=== PATIENT | female | born 1960 | race Caucasian/White ===

== ENCOUNTER 2024-09-05 16:02 | Observation (INO) ==
--- NOTE | 2024-09-05 16:34 | Emergency Department Note ---
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 Patient is accompanied by her who provide additional history. patient states that she suffered a fall on . Patient states that she slipped in the grass and fell and hit her head. Patient reports that she landed on her left side. On Thursday she developed right lower quadrant abdominal pain. She reports this is sharp and stabbing. Intermittently radiates to her right flank. Patient states that she has been taking Tylenol for improvement. She does report anticoagulation. Patient denies any abdominal surgical history. Patient states that nothing has seemed to improve her pain. She reports mild constipation. Patient denies any urinary complaints. No vaginal bleeding. Patient states she has had poor p.o. intake. She was seen at an urgent care prior to arrival but they did not order labs or imaging. Patient states that she continues to have a posterior headache. She denies any other trauma. They deny fever or chills. No cough or congestion. Denies chest pain or palpitations. No shortness of breath. They deny abdominal pain, nausea and vomiting. No urinary complaints. No recent changes in bowel movements. Patient denies recent changes in medications or OTC supplements. Patient offers no other complaints, today. ADDITIONAL HISTORY OBTAINED: Per HPI Chronic Medical/Social Conditions Affecting Care: Per HPI PAST MEDICAL HISTORY: See Below PAST SURGICAL HISTORY: See Below FAMILY HISTORY: See Below SOCIAL HISTORY: See Below HOME MEDICATIONS: See Below ALLERGIES: See Below VITALS: See Below PHYSICAL EXAMINATION: GENERAL: Sitting up in bed, alert, well appearing, well nourished, no distress, non-toxic EYE EXAM: normal conjunctiva. PERRL and EOM's grossly intact. OROPHARYNX: no exudate, no erythema, lips, buccal mucosa, and tongue normal and mucous membranes are moist NECK: supple, no nuchal rigidity, no adenopathy, non-tender LUNGS: Clear to auscultation. Normal chest wall mechanics HEART: no murmurs, regular rate, regular rhythm ABDOMEN: abdomen soft, tenderness in the right side of abdomen, +Fraga's sign, normo-active bowel sounds, no masses, no rebound or guarding. BACK: Back is symmetrical on inspection and there is no deformity, no midline tenderness, some R CVA tenderness. SKIN: no rashes and no bruising UPPER EXTREMITIES: upper extremities are grossly normal. LOWER EXTREMITIES: No pitting edema. NEURO EXAM: Normal sensorium, GCS 15, normal speech, no gross weakness of arms, no gross weakness of legs. MEDICAL DECISION MAKING: Differential diagnoses includes but not limited to hematoma, free fluid, rib fracture, bowel injury, symptomatic cholelithiasis, acute cholecystitis, appendicitis, bowel obstruction, diverticulitis, malignancy, nephrolithiasis, gastroenteritis, pancreatitis, biliary disease, UTI, MSK strain, muscle spasm In summary, this is a 64 year old female who presented with abdominal pain. Differential as above. Nursing notes and pertinent past medical records reviewed. Vital signs reviewed and the patient is Afebrile hemodynamically stable. History and presentation revealed . Patient is on chronic anticoagulation secondary to a mechanical mitral valve. This was a number years ago. She takes Coumadin. Patient had a fall on . Did not develop pain in her abdomen until Thursday. She seems uncomfortable and tender in the right upper and lower quadrants. No evidence of trauma on physical examination. She did strike her head. Given her chronic anticoagulation, we will obtain CT head. We also obtain basic lab work and a CT abdomen/pelvis for further evaluation of intra-abdominal pathology. Patient's C-spine was cleared by Nexus criteria. No need for further imaging. I offered pain control medications but she declined. Diagnostics interpreted by me include EKG and cardiac monitoring as listed below: -Cardiac Monitoring: An order was placed for continuous cardiac monitoring. The monitor shows a rate of 50-70 with regular rhythm. -ECG: EKG independently interpreted by me reveals normal sinus rhythm at a ventricular rate of [address] segment changes suggest STEMI. Intervals are within normal limits. QRS are low voltage on this EKG. -CTH independently interpreted by me reveals no evidence of ICH. No significant hydrocephalus. No major skull fractures. CTH does not demonstrate findings to suggest an etiology of the patient's symptoms or presentation, today. Patient completed laboratory studies and imaging. Results independently interpreted by me are Mild anemia. No significant leukocytosis. INR was therapeutic at 2.6. No significant electrolyte derangements. Urinalysis did not reveal UTI. CXR independently interpreted by me reveals no evidence of focal consolidation to suggest pna. No large pneumothorax or pleural effusion. She does have some pulmonary nodules that require outpatient CT abdomen/pelvis was independently interpreted by me and showed multiple hepatic cyst with questionable findings in the lower portion of the liver. Does have cholelithiasis and enlarged gallbladder. There does appear to be pericholecystic fluid. She does have a positive Fraga sign on exam. The patient has a large rectus sheath hematoma without evidence of active extravasation. Do believe this is likely related to her fall and chronic anticoagulation with Coumadin. INR pending. We will place a abdominal binder. Plan to discuss with general surgery regarding possible acute cholecystitis. She does have findings on ultrasound and exam to suggest acute cholecystitis, her labs are unremarkable. No transaminitis. No leukocytosis. She has not had fevers. She has been mildly nauseous but no episodes of emesis. Paged general surgery at [address] Klein at 2037. Discussed rectus sheath hematoma and findings of likely symptomatic cholelithiasis vs cholecystitis. I do feel her pain is more related to the rectus sheath hematoma. Dr. Klein is agreeable to this. WIll need abdominal binder and close observation. If she were to become unstable or downtrending Hgb, she would require anticoagulation reversal and transfer for likely IR intervention. Ultimately, the decision was made to admit the patient for abdominal muscular hematoma after a fall in the setting of chronic anticoagulation as well as likely symptomatic cholelithiasis. It was recommended to admit this patient at 2124 which was delayed due to issues with paging system. I discussed the case with the hospitalist service via [employer] and they are agreeable to admit the patient to their services. Based on the above, including the patient's age, coexisting illnesses, labs, imaging, and exam findings the decision to treat as an inpatient. I discussed the patient with the hospitalist team who recommended admission to their services. They received the medications, treatments, interventions indicated above and their condition []. I discussed my findings with the patient and their family and they understand and agree with the treatment plan. All patient / family questions were answered to their satisfaction. Consults/Care Managements Discussions: Per MDM ER treatment provided: See above Procedures:none Critical Care: None The chart was completed utilizing [employer] voice recognition software. Grammatical errors, random word insertions, pronoun errors, and incomplete sentences are an occasional consequence of this system due to software limitations, ambient noise, and hardware issues. Any formal questions or concerns about the content, text, or information contained within the body of this dictation should be directly addressed to the physician for clarification. Past Med/Surg History Problem List (Updated 09/06/24 @ 00:03 by Corky Norwood DO) Incidental pulmonary nodule (Acute) Liver hemangioma (Acute) Benign liver cyst (Acute) Chronic anticoagulation (Acute) Symptomatic cholelithiasis (Acute) Fall (Acute) Hematoma of rectus sheath (Acute) Intramuscular hematoma Abdominal pain Medical History (Updated 09/06/24 @ 00:03 by Corky Norwood DO) Current use of long term care social worker anticoagulation Chronic pain of left knee Hyperlipidemia Surgical History (Updated 09/05/24 @ 22:07 by Kirby Harman MD) Hx of tonsillectomy S/P mitral valve replacement Family History (Updated 09/05/24 @ 22:08 by Kirby Harman MD) Mother Cancer Social History Smoking Status: Former smoker Preferred Language: Irish Feels Safe at Home: Yes Allergies Allergies Allergy/AdvReac Type Severity Reaction Status Date / Time cephalexin Allergy Rash Verified 09/05/24 17:19 Home Meds Home Medications Medication Instructions Recorded Confirmed aspirin 81 mg tablet,delayed 81 mg PO QAM 09/05/24 09/05/24 release atorvastatin 10 mg tablet 10 mg PO QAM 09/05/24 09/05/24 furosemide 20 mg tablet 20 mg PO DAILY PRN Edema 09/05/24 09/05/24 metoprolol tartrate 25 mg tablet 25 mg PO AMHS 09/05/24 09/05/24 warfarin 5 mg tablet 5 - 10 mg PO UD 09/05/24 09/05/24 Results & Data (ED) Vital Signs Vital Signs - 24 hr 09/05/24 16:03 09/05/24 16:34 09/05/24 17:30 Temperature 36.6 C Temperature Source Temporal Artery Scan Pulse Rate 69 56 L 56 L Pulse Rate [Left Apical] Pulse Rate from SpO2 Sensor Pulse Rhythm Regular Respiratory Rate 18 19 22 Respiratory Effort / Characteristics Respiratory Depth Respiratory Pattern Blood Pressure 142/92 H 132/81 Blood Pressure [Right Arm] Blood Pressure Mean 108 98 Blood Pressure Mean [Right Arm] Pulse Oximetry 100 99 99 Oxygen Delivery Method Room Air Room Air Sepsis Recent Fever Within 48 Hours No Sepsis New/Unexplained Change in Mental Status N/A Sepsis Action Taken by Nursing No Action Required 09/05/24 17:38 09/05/24 18:48 09/05/24 19:00 Temperature Temperature Source Pulse Rate 58 L 63 Pulse Rate [Left Apical] 57 L Pulse Rate from SpO2 Sensor Pulse Rhythm Respiratory Rate 17 17 Respiratory Effort / Characteristics Non-Labored Spontaneous Respiratory Depth Normal Respiratory Pattern Regular Blood Pressure 124/77 Blood Pressure [Right Arm] 128/73 Blood Pressure Mean 92 Blood Pressure Mean [Right Arm] 91 Pulse Oximetry 98 96 Oxygen Delivery Method Room Air Sepsis Recent Fever Within 48 Hours Sepsis New/Unexplained Change in Mental Status Sepsis Action Taken by Nursing 09/05/24 19:42 09/05/24 20:31 09/05/24 21:00 Temperature Temperature Source Pulse Rate 56 L 64 55 L Pulse Rate [Left Apical] Pulse Rate from SpO2 Sensor Pulse Rhythm Respiratory Rate 15 18 17 Respiratory Effort / Characteristics Respiratory Depth Respiratory Pattern Blood Pressure 130/77 140/79 141/88 H Blood Pressure [Right Arm] Blood Pressure Mean 94 114 115 Blood Pressure Mean [Right Arm] Pulse Oximetry 98 96 98 Oxygen Delivery Method Sepsis Recent Fever Within 48 Hours Sepsis New/Unexplained Change in Mental Status Sepsis Action Taken by Nursing 09/05/24 21:27 09/05/24 21:31 09/05/24 22:00 Temperature Temperature Source Pulse Rate 70 70 63 Pulse Rate [Left Apical] Pulse Rate from SpO2 Sensor Pulse Rhythm Respiratory Rate 22 16 Respiratory Effort / Characteristics Respiratory Depth Respiratory Pattern Blood Pressure 179/86 H 143/93 H Blood Pressure [Right Arm] Blood Pressure Mean 143 109 Blood Pressure Mean [Right Arm] Pulse Oximetry 96 97 Oxygen Delivery Method Sepsis Recent Fever Within 48 Hours Sepsis New/Unexplained Change in Mental Status Sepsis Action Taken by Nursing 09/05/24 22:30 09/05/24 22:30 09/05/24 23:00 Temperature Temperature Source Pulse Rate 72 67 68 Pulse Rate [Left Apical] Pulse Rate from SpO2 Sensor 68 Pulse Rhythm Respiratory Rate 15 21 17 Respiratory Effort / Characteristics Respiratory Depth Respiratory Pattern Blood Pressure 140/95 140/95 134/93 Blood Pressure [Right Arm] Blood Pressure Mean 119 119 106 Blood Pressure Mean [Right Arm] Pulse Oximetry 97 96 Oxygen Delivery Method Sepsis Recent Fever Within 48 Hours Sepsis New/Unexplained Change in Mental Status Sepsis Action Taken by Nursing 09/05/24 23:02 09/05/24 23:02 Temperature Temperature Source Pulse Rate 67 Pulse Rate [Left Apical] 69 Pulse Rate from SpO2 Sensor Pulse Rhythm Regular Respiratory Rate 14 14 Respiratory Effort / Characteristics Respiratory Depth Respiratory Pattern Blood Pressure Blood Pressure [Right Arm] Blood Pressure Mean Blood Pressure Mean [Right Arm] Pulse Oximetry 96 98 Oxygen Delivery Method Room Air Sepsis Recent Fever Within 48 Hours Sepsis New/Unexplained Change in Mental Status Sepsis Action Taken by Nursing Laboratory Data 09/05/24 23:00 09/05/24 16:55 Lab Results 09/05/24 09/05/24 09/05/24 Range/Units 16:55 23:00 Unknown WBC 7.43 (4.8-10.8) K/ul RBC 4.23 (4.20-5.40) M/uL Hgb 12.5 11.2 L (12.0-16.0) g/dl Hct 38.3 33.2 L (37.0-47.0) % MCV 90.5 (80.0-100.0) fL MCH 29.6 (25.0-34.0) pg MCHC 32.6 (32.0-36.0) g/dL RDW Std Deviation 42.5 (36.4-46.3) fL RDW Coeff of Tita 12.9 (11.5-14.5) % Plt Count 157 (130-400) K/uL MPV 9.9 (9.4-12.4) fL Immature Gran % (Auto) 0.3 % Neut % (Auto) 71.1 % Lymph % (Auto) 19.8 % [place] % (Auto) 7.1 % Eos % (Auto) 1.3 % Baso % (Auto) 0.4 % Neut # (Auto) 5.28 (1.40-6.50) K/uL Lymph # (Auto) 1.47 (1.20-3.40) K/uL [place] # (Auto) 0.53 (0.11-0.59) K/uL Eos # (Auto) 0.10 (0.00-0.50) K/uL Baso # (Auto) 0.03 (0.00-0.20) K/uL Immature Gran # (Auto) 0.02 (0.01-0.20) K/uL PT 26.2 H (9.0-12.0) Seconds INR 2.6 H (0.9-1.1) APTT 39 H (21-31) Seconds PTT Ratio 1.4 Sodium 142 (136-145) mmol/L Potassium 4.0 (3.5-5.1) mmol/L Chloride 110 H (98-107) mmol/L Carbon Dioxide 27 (21-32) mmol/L Anion Gap 5 (3-11) BUN 14 (6-23) mg/dl Creatinine 0.62 (0.6-1.2) mg/dl Est Cr Clr Drug Dosing 90.8 ml/min eGFR 98.15 BUN/Creatinine Ratio 22.6 H (10-20) Glucose 90 (70-99(Fasting)) mg/dl Lactate 1.1 (0.4-2.0) mmol/L Calcium 8.9 (8.6-10.3) mg/dl Total Bilirubin 0.8 (0.2-1.0) mg/dl AST 26 (13-39) U/L ALT 23 (7-52) U/L Alkaline Phosphatase 52 (34-104) U/L Total Protein 6.3 (6.0-8.3) gm/dl Albumin 4.3 (3.4-5.0) gm/dl Globulin 2.0 L (2.5-4.0) gm/dl Albumin/Globulin Ratio 2.2 H (0.9-2) Lipase 28 (11-82) U/L Urine Color Yellow Urine Appearance Clear (Clear) Urine pH 7.5 (4.5-7.5) Ur Specific [place] 1.006 (1.000-1.030) Urine Protein Negative (Negative) Urine Glucose (UA) Negative (Negative) Urine Ketones Negative (Negative) Urine Blood Negative (Negative) Urine Nitrite Negative (Negative) Urine Bilirubin Negative (Negative) Urine Urobilinogen Negative (Negative) Ur Leukocyte Esterase Trace H (Negative) Urine WBC (Auto) 0-5 (0-5) /hpf Urine RBC (Auto) 0-2 (0-2) /hpf U Hyaline Cast (Auto) 0-2 (0-2) /lpf U Epithel Cells (Auto) 0-2 (0-2) /hpf Urine Bacteria (Auto) None Seen (None Seen) Urine Comment Administered Medications Discontinued Medications Parenteral Electrolytes (Plasma-Lyte A Ph 7.4) 1,000 mls @ 999 mls/hr IV .Q1H1M ONE Stop: 09/05/24 17:35 Last Infusion: 09/05/24 19:15 Dose: Infused Documented By: Admin: 09/05/24 17:07 Dose: 999 mls/hr Documented By: KWAME Ioversol (Optiray 320 100ml) 93 ml IV ONCE ONE Stop: 09/05/24 18:04 Last Admin: 09/05/24 18:04 Dose: 93 ml Documented By: GES Imaging Data Radiologist's Impression: Chest X-Ray 09/05/24 16:34 Clinical History: Fall Technique: A frontal view of the chest was obtained Findings: There is mild bilateral lung base atelectasis. The heart is mildly enlarged. No pleural effusion or pneumothorax is seen. There were small nodular opacities in the left lung apex and right upper lobe No fracture is noted. There is a prosthetic cardiac valve. Sternal wires are present Impression: 1. Mild bilateral lung base atelectasis 2. Suspected small pulmonary nodules, indeterminate in nature. A follow-up chest CT could be considered 3. Mild cardiomegaly ACT 112: Positive. There are findings on this exam that require communication between the performing entity and the patient following Patient Test Result Information Act ([place] ACT 112) guidelines. Electronically signed by Dominick 09-05-2024 5:[address] 09/05/24 16:34 Clinical History: Injury. Technique: Axial computed tomography images were obtained of the brain from the vertex to the skull base without intravenous contrast. Findings: There is no sign of intracranial hemorrhage. There is normal clayton-white matter differentiation with no sign of acute or old infarction. No midline shift or other form of herniation is identified. There is no hydrocephalus. No obvious mass lesion is seen on this noncontrast examination. The visualized portions of the orbits and paranasal sinuses appear unremarkable. The mastoid air cells appear clear Impression: Unremarkable noncontrast CT of the brain Electronically signed by Dominick 09-05-2024 6:45 PM Abdomen/Pelvis CT 09/05/24 16:35 Clinical History: Evaluate for appendicitis Technique: Axial computed tomography images were obtained of the abdomen and pelvis after the administration of intravenous contrast. No prior CT is available for comparison. Findings: The liver is enlarged measuring 20.1 cm. There is no sign of cirrhosis or significant fatty infiltration. There is a 6.4 cm heterogeneously enhancing mass in the right hepatic lobe. There is an 8.4 cm cyst in the left hepatic lobe with 2 adjacent smaller cysts. There are several smaller renal cysts, measuring up to 1.6 cm. The portal vein is patent. There are multiple gallstones. There is no definite sign of acute cholecystitis. No bile duct dilatation is noted. The spleen is of normal size. No focal splenic lesion is evident. The pancreas appears normal with no sign of acute or chronic pancreatitis and no mass lesion noted. The pancreatic duct is of normal caliber. The adrenal glands appear unremarkable. No definite renal or proximal ureteral calculi are seen on this contrast-enhanced study. There is no hydronephrosis or perinephric stranding. No renal mass lesion is identified. The aorta is of normal caliber. No abdominal adenopathy is seen. There is a small umbilical hernia containing only fat. The stomach appears normal. There is no sign of small bowel obstruction. There is sigmoid diverticulosis without evidence of diverticulitis. No free intraperitoneal fluid or air is identified. There is no definite sign of appendicitis. There is an acute hematoma in the right rectus abdominis muscle in the right lower abdomen, measuring up to 7 x 4 cm in size. No distal ureteral or bladder calculi are seen. The bladder is decompressed. The iliac arteries are of normal caliber. No pelvic adenopathy is noted. There is a 1 cm follicle in the left ovary and there is a 1.3 cm follicle in the right ovary. There is a small right inguinal hernia containing only fat. There is mild subsegmental atelectasis in both lung bases. There is a mitral valve placement. Mild thoracolumbar degenerative disc disease is seen. No fracture is identified. No focal osseous lesion is seen Impression: 1. No sign of appendicitis 2. Large 7 x 4 cm acute intramuscular hematoma involving the right rectus abdominis in the right lower quadrant 3. Large 6.4 cm liver mass, likely a benign hemangioma. Correlation with liver sonography may be useful 4. Multiple hepatic cysts 5. Hepatomegaly 6. Cholelithiasis without evidence of acute cholecystitis 7. Diverticulosis without definite diverticulitis 8. Small right inguinal hernia containing only fat ACT 112: Positive. There are findings on this exam that require communication between the performing entity and the patient following Patient Test Result Information Act ([place] ACT 112) guidelines. Electronically signed by Dominick 09-05-2024 7:26 PM Abdomen Ultrasound 09/05/24 19:18 Exam(s): US ABDOMEN LIMITED EXAM: US Abdomen Limited, Right Upper Quadrant CLINICAL HISTORY: Reason for exam: cholelithiasis, fluid, liver mass?. TECHNIQUE: Real-time ultrasound of the right upper quadrant with image documentation. COMPARISON: 09/05/2024. FINDINGS: Liver: Complex lesion in the right hepatic lobe measuring 5.3 x 5.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 MRI is the best test to further characterize. Multiple additional cysts within the liver measuring up to 8 cm. Gallbladder: Cholelithiasis without acute cholecystitis. Common bile duct: CBD measures 5 mm. Pancreas: Unremarkable as visualized. Right kidney: Unremarkable. No hydronephrosis. IMPRESSION: 1. Complex lesion in the right hepatic lobe measuring 5.3 x 5.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 MRI is the best test to further characterize. 2. Multiple additional cysts within the liver measuring up to 8 cm. 3. Cholelithiasis without acute cholecystitis. Electronically signed by: Feliciano Galarza MD 09/05/24 21:59 PM Discharge Plan Visit Data Chief Complaint: Abdominal Pain Stated Complaint: ABD PAIN, RT FLANK PAIN ED Provider: Corky Norwood Discharge Problem: Hematoma of rectus sheath, Fall, Symptomatic cholelithiasis, Chronic anticoagulation, Benign liver cyst, Liver hemangioma, Incidental pulmonary nodule Patient Disposition: Admitted As Inpatient Condition: Fair Forms Stand Alone Forms: My [facility] [employer] Prescriptions Prescriptions: No Action warfarin 5 mg Tablet 5 - 10 mg PO UD Rx Instructions: DAILY DIRECTED BY ANTICOAGULATION CLINIC furosemide 20 mg Tablet 20 mg PO DAILY PRN (Reason: Edema) aspirin [Aspirin Low-Strength] 81 mg Tablet,Delayed Release (Dr/Ec) 81 mg PO QAM Rx Instructions: TAKE WITH FOOD metoprolol tartrate 25 mg Tablet 25 mg PO AMHS atorvastatin 10 mg Tablet 10 mg PO QAM Referrals Referrals: Dolores Kelley, [Primary Care Provider] -
[2024-09-05] MEDS: PLASMA-LYTE A 1,000 ML IV ONE (17:07)
[2024-09-05 17:12] LABS: Hematocrit (blood only) 38.3 % (37.0-47.0); Hemoglobin 12.5 g/dl (12.0-16.0); Immature Granulocytes # (auto) 0.02 K/uL (0.01-0.20); Immature Granulocytes % (auto) 0.3 %; Mean Corpuscular Hemoglobin 29.6 pg (25.0-34.0); Mean Corpuscular Volume 90.5 fL (80.0-100.0); Platelet Count 157 K/uL (130-400); RDW Standard Deviation 42.5 fL (36.4-46.3); Red Blood Count 4.23 M/uL (4.20-5.40); White Blood Count 7.43 K/ul (4.8-10.8)
--- NOTE | 2024-09-05 17:28 | XRay Report ---
Clinical History: Fall Technique: A frontal view of the chest was obtained Findings: There is mild bilateral lung base atelectasis. The heart is mildly enlarged. No pleural effusion or pneumothorax is seen. There were small nodular opacities in the left lung apex and right upper lobe No fracture is noted. There is a prosthetic cardiac valve. Sternal wires are present Impression: 1. Mild bilateral lung base atelectasis 2. Suspected small pulmonary nodules, indeterminate in nature. A follow-up chest CT could be considered 3. Mild cardiomegaly ACT 112: Positive. There are findings on this exam that require communication between the performing entity and the patient following Patient Test Result Information Act ([place] ACT 112) guidelines. Electronically signed by Dominick 09-05-2024 5:28 PM
[2024-09-05 17:39] LABS: Alanine Aminotransferase 23.0 U/L (7-52); Albumin Globulin Ratio 2.2 (0.9-2); Alkaline Phosphatase 52.0 U/L (34-104); Anion Gap 5.0 (3-11); Bilirubin,Total 0.8 mg/dl (0.2-1.0); Blood Urea Nitrogen 14.0 mg/dl (6-23); Calcium 8.9 mg/dl (8.6-10.3); Carbon Dioxide 27.0 mmol/L (21-32); Chloride 110.0 mmol/L (98-107); Creatinine Clr Calc Pharmacy 90.8 ml/min; Globulin 2.0 gm/dl (2.5-4.0); Glucose 90.0 mg/dl (70-99(Fasting)); Lipase 28.0 U/L (11-82); Potassium 4.0 mmol/L (3.5-5.1); Sodium 142.0 mmol/L (136-145); Total Protein 6.3 gm/dl (6.0-8.3)
[2024-09-05] MEDS: OPTIRAY 320 100ml IV ONE (18:04)
[2024-09-05 18:17] LABS: Appearance Urine Clear (Clear); Bacteria Urine Automated None Seen (None Seen); Cast Urine Automated 0-2 /lpf (0-2); Epithelial Cell Urine Auto 0-2 /hpf (0-2); Glucose Urine UA Negative (Negative); RBC Urine Automated 0-2 /hpf (0-2); WBC Urine Automated 0-5 /hpf (0-5)
--- NOTE | 2024-09-05 18:47 | CT Scan Report ---
Clinical History: Injury. Technique: Axial computed tomography images were obtained of the brain from the vertex to the skull base without intravenous contrast. Findings: There is no sign of intracranial hemorrhage. There is normal clayton-white matter differentiation with no sign of acute or old infarction. No midline shift or other form of herniation is identified. There is no hydrocephalus. No obvious mass lesion is seen on this noncontrast examination. The visualized portions of the orbits and paranasal sinuses appear unremarkable. The mastoid air cells appear clear Impression: Unremarkable noncontrast CT of the brain Electronically signed by Dominick 09-05-2024 6:45 PM
--- NOTE | 2024-09-05 19:27 | CT Scan Report ---
Clinical History: Evaluate for appendicitis Technique: Axial computed tomography images were obtained of the abdomen and pelvis after the administration of intravenous contrast. No prior CT is available for comparison. Findings: The liver is enlarged measuring 20.1 cm. There is no sign of cirrhosis or significant fatty infiltration. There is a 6.4 cm heterogeneously enhancing mass in the right hepatic lobe. There is an 8.4 cm cyst in the left hepatic lobe with 2 adjacent smaller cysts. There are several smaller renal cysts, measuring up to 1.6 cm. The portal vein is patent. There are multiple gallstones. There is no definite sign of acute cholecystitis. No bile duct dilatation is noted. The spleen is of normal size. No focal splenic lesion is evident. The pancreas appears normal with no sign of acute or chronic pancreatitis and no mass lesion noted. The pancreatic duct is of normal caliber. The adrenal glands appear unremarkable. No definite renal or proximal ureteral calculi are seen on this contrast-enhanced study. There is no hydronephrosis or perinephric stranding. No renal mass lesion is identified. The aorta is of normal caliber. No abdominal adenopathy is seen. There is a small umbilical hernia containing only fat. The stomach appears normal. There is no sign of small bowel obstruction. There is sigmoid diverticulosis without evidence of diverticulitis. No free intraperitoneal fluid or air is identified. There is no definite sign of appendicitis. There is an acute hematoma in the right rectus abdominis muscle in the right lower abdomen, measuring up to 7 x 4 cm in size. No distal ureteral or bladder calculi are seen. The bladder is decompressed. The iliac arteries are of normal caliber. No pelvic adenopathy is noted. There is a 1 cm follicle in the left ovary and there is a 1.3 cm follicle in the right ovary. There is a small right inguinal hernia containing only fat. There is mild subsegmental atelectasis in both lung bases. There is a mitral valve placement. Mild thoracolumbar degenerative disc disease is seen. No fracture is identified. No focal osseous lesion is seen Impression: 1. No sign of appendicitis 2. Large 7 x 4 cm acute intramuscular hematoma involving the right rectus abdominis in the right lower quadrant 3. Large 6.4 cm liver mass, likely a benign hemangioma. Correlation with liver sonography may be useful 4. Multiple hepatic cysts 5. Hepatomegaly 6. Cholelithiasis without evidence of acute cholecystitis 7. Diverticulosis without definite diverticulitis 8. Small right inguinal hernia containing only fat ACT 112: Positive. There are findings on this exam that require communication between the performing entity and the patient following Patient Test Result Information Act ([place] ACT 112) guidelines. Electronically signed by Dominick 09-05-2024 7:26 PM
[2024-09-05 21:17] LABS: INR 2.6 (0.9-1.1); Partial Thromboplastin Time 39 Seconds (21-31); Prothrombin Time 26.2 Seconds (9.0-12.0)
--- NOTE | 2024-09-05 22:00 | Ultrasound Report ---
Exam(s): US ABDOMEN LIMITED EXAM: US Abdomen Limited, Right Upper Quadrant CLINICAL HISTORY: Reason for exam: cholelithiasis, fluid, liver mass?. TECHNIQUE: Real-time ultrasound of the right upper quadrant with image documentation. COMPARISON: 09/05/2024. FINDINGS: Liver: Complex lesion in the right hepatic lobe measuring 5.3 x 5.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 MRI is the best test to further characterize. Multiple additional cysts within the liver measuring up to 8 cm. Gallbladder: Cholelithiasis without acute cholecystitis. Common bile duct: CBD measures 5 mm. Pancreas: Unremarkable as visualized. Right kidney: Unremarkable. No hydronephrosis. IMPRESSION: 1. Complex lesion in the right hepatic lobe measuring 5.3 x 5.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 MRI is the best test to further characterize. 2. Multiple additional cysts within the liver measuring up to 8 cm. 3. Cholelithiasis without acute cholecystitis. Electronically signed by: Feliciano Galarza MD 09/05/24 21:59 PM
--- NOTE | 2024-09-05 22:09 | History & Physical Report ---
Date of Service September 05, 2024 Assessment & Plan (1) Abdominal pain: (2) Intramuscular hematoma: Plan: Pt s/p mechanical fall on , presents with abdominal pain since Thursday On anticoagulation, given hx of mechanical mitral valve CT abd/pelvis - Large 7 x 4 cm acute intramuscular hematoma involving the right rectus abdominis in the right lower quadrant Current INR 2.6 Pt was given abdominal binder in ER ER provider discussed w/ gen. surgery - Dr. Klein Will cont. to monitor H&H closely, Hgb 12 in ER at 5pm, will re-check now Current BP 140/95 - pt been hemodynamically stable in ER, will cont. to closely monitor re-check INR in the morning, hold warfarin tonight If INR < 2.5 , may need to start IV heparin INR goal given her mechanical mitral valve 2.5-3.5 Pt was previously on metoprolol 50 bid, recently changed to 25 bid. Pt reports she has palpitations if she does not take metoprolol, will cont. for now Hold ASA for now Gen. surgery consulted Liver cyst/s Pt aware and documented in her hiv prevention specialist's note that she has hx of liver cyst Pt reports no work up in the past On current CT abd./pelvis - Large 6.4 cm liver mass, likely a benign hemangioma. Correlation with liver sonography may be useful . Multiple hepatic cysts Liver US - Complex lesion in the right hepatic lobe measuring 5.3 x 5.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 MRI is the best test to further characterize.Multiple additional cysts within the liver measuring up to 8 cm. Recommend outpt follow up Pulmonary nodules - incidental finding on CXR There were small nodular opacities in the left lung apex and right upper lobe Suspected small pulmonary nodules, indeterminate in nature. A follow-up chest CT could be considered Recommend outpt follow up History of Present Illness Chief Complaint: Abdominal pain Primary Care Provider: Dolores Kelley DO 64 yo F with hx of hyperlipidemia, chronic left knee pain, S/p mitral valve replacement in 2005 (follow w/ cardiology in [place]) on anticoagulation (follows with anticoagulation clinic - per most recent note reviewed - pt is to take warfarin 10 mg on Thursday and , then 5 mg all the other days - she is supposed to have INR re-checked on 10/13/2024) who presents with abdominal pain following a fall. Pt reports she fell on and hit her back, left leg and head. Then since Thursday she has been having right lower quadrant abdominal pain. She reports she slipped on the grass, she denies having any dizziness, lightheadedness, chest pain or shortness of breath prior to her fall. Today (09/05) she called her PCP office regarding her abdominal pain and was advised to present in to the ED given hx of fall and being on anticoagulation. In the ED CT head, and CT abdomen/pelvis were obtained. Rectal sheath hematoma was found on CT and was discussed w/ gen. surgery by ED provider. Given her anticoagulation pt will be admitted to the hospital for close monitoring of her H&H, INR, and hemodynamic status. Given her mechanical mitral valve pt requires anticoagulation. Currently pt is sitting up in bed in [facility]. She is awake, alert, answers appropriately. Denies any fevers, chills, cough, denies any chest pain, shortness of breath, denies any nausea or vomiting. 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 Discussed with the pt liver cyst/s - findings on CT/ liver US - hx of liver cyst documented in her hiv prevention specialist's note from 07/26/2024 -reviewed. Pt aware but not sure if she has one or multiple and what size. Also discussed possible small pulmonary nodules noted on CXR, and recommended outpt follow up. Reviewed pt's medications with her - says she is no longer on statin - she stopped taking it several months ago. Allergies Allergy/AdvReac Type Severity Reaction Status Date / Time cephalexin Allergy Rash Verified 09/05/24 17:19 Home Medications Medication Instructions Recorded Confirmed Type aspirin 81 mg tablet,delayed 81 mg PO QAM 09/05/24 09/05/24 History release atorvastatin 10 mg tablet 10 mg PO QAM 09/05/24 09/05/24 History furosemide 20 mg tablet 20 mg PO DAILY PRN Edema 09/05/24 09/05/24 History metoprolol tartrate 25 mg tablet 25 mg PO AMHS 09/05/24 09/05/24 History warfarin 5 mg tablet 5 - 10 mg PO UD 09/05/24 09/05/24 History Past Med/Surg History Problem List (Updated 09/05/24 @ 23:08 by Kirby Harman MD) Intramuscular hematoma Abdominal pain Medical History (Updated 09/05/24 @ 23:08 by Kirby Harman MD) Current use of [facility] anticoagulation Chronic pain of left knee Hyperlipidemia Surgical History (Updated 09/05/24 @ 22:07 by Kirby Harman MD) Hx of tonsillectomy S/P mitral valve replacement Family History (Updated 09/05/24 @ 22:08 by Kirby Harman MD) Mother Cancer Social History Smoking Status: Former smoker Preferred Language: Tunisian Feels Safe at Home: Yes Review of Systems Review of Systems: All systems reviewed & are unremarkable except as noted in HPI & below Physical Exam Constitutional: WD/WN, vitals as above Eyes: PERRL, conjunctivae normal, anicteric sclerae ENMT: external ear and nose normal, oropharynx normal Neck: supple Respiratory: normal respiratory effort, lungs clear to auscultation Cardiovascular: Rate/Rhythm: regular rate and regular rhythm +mechanical valve sound Gastrointestinal (Abdomen): soft, tender to palpation zachary. at RLQ, + abdominal binder Musculoskeletal: moves extremities Skin: no rashes, warm and dry Neurologic: PERRL, EOMI, accommodation nl, no face palsy, no dysarthria Results & Data Results & Data Vital Signs (Past 12 Hours) Vital Signs Temp Pulse Pulse Resp BP BP Pulse Ox 09/05/24 21:31 70 22 179/86 H 96 09/05/24 21:27 70 09/05/24 21:00 55 L 17 141/88 H 98 09/05/24 20:31 64 18 140/79 96 09/05/24 19:42 56 L 15 130/77 98 09/05/24 19:00 63 17 124/77 96 09/05/24 18:48 57 L 17 128/73 98 09/05/24 17:38 58 L 09/05/24 17:30 56 L 22 132/81 99 09/05/24 16:34 56 L 19 99 09/05/24 16:03 36.6 C 69 18 142/92 H 100 O2 Del Method 09/05/24 21:31 09/05/24 21:27 09/05/24 21:00 09/05/24 20:31 09/05/24 19:42 09/05/24 19:00 09/05/24 18:48 Room Air 09/05/24 17:38 09/05/24 17:30 Room Air 09/05/24 16:34 Room Air 09/05/24 16:03 Laboratory Results 09/05/24 09/05/24 Range/Units Unknown 16:55 WBC 7.43 (4.8-10.8) K/ul RBC 4.23 (4.20-5.40) M/uL Hgb 12.5 (12.0-16.0) g/dl Hct 38.3 (37.0-47.0) % MCV 90.5 (80.0-100.0) fL MCH 29.6 (25.0-34.0) pg MCHC 32.6 (32.0-36.0) g/dL RDW Std Deviation 42.5 (36.4-46.3) fL RDW Coeff of Tita 12.9 (11.5-14.5) % Plt Count 157 (130-400) K/uL MPV 9.9 (9.4-12.4) fL Immature Gran % (Auto) 0.3 % Neut % (Auto) 71.1 % Lymph % (Auto) 19.8 % [place] % (Auto) 7.1 % Eos % (Auto) 1.3 % Baso % (Auto) 0.4 % Neut # (Auto) 5.28 (1.40-6.50) K/uL Lymph # (Auto) 1.47 (1.20-3.40) K/uL [place] # (Auto) 0.53 (0.11-0.59) K/uL Eos # (Auto) 0.10 (0.00-0.50) K/uL Baso # (Auto) 0.03 (0.00-0.20) K/uL Immature Gran # (Auto) 0.02 (0.01-0.20) K/uL PT 26.2 H (9.0-12.0) Seconds INR 2.6 H (0.9-1.1) APTT 39 H (21-31) Seconds PTT Ratio 1.4 Sodium 142 (136-145) mmol/L Potassium 4.0 (3.5-5.1) mmol/L Chloride 110 H (98-107) mmol/L Carbon Dioxide 27 (21-32) mmol/L Anion Gap 5 (3-11) BUN 14 (6-23) mg/dl Creatinine 0.62 (0.6-1.2) mg/dl Est Cr Clr Drug Dosing 90.8 ml/min eGFR 98.15 BUN/Creatinine Ratio 22.6 H (10-20) Glucose 90 (70-99(Fasting)) mg/dl Lactate 1.1 (0.4-2.0) mmol/L Calcium 8.9 (8.6-10.3) mg/dl Total Bilirubin 0.8 (0.2-1.0) mg/dl AST 26 (13-39) U/L ALT 23 (7-52) U/L Alkaline Phosphatase 52 (34-104) U/L Total Protein 6.3 (6.0-8.3) gm/dl Albumin 4.3 (3.4-5.0) gm/dl Globulin 2.0 L (2.5-4.0) gm/dl Albumin/Globulin Ratio 2.2 H (0.9-2) Lipase 28 (11-82) U/L Urine Color Yellow Urine Appearance Clear (Clear) Urine pH 7.5 (4.5-7.5) Ur Specific Peck 1.006 (1.000-1.030) Urine Protein Negative (Negative) Urine Glucose (UA) Negative (Negative) Urine Ketones Negative (Negative) Urine Blood Negative (Negative) Urine Nitrite Negative (Negative) Urine Bilirubin Negative (Negative) Urine Urobilinogen Negative (Negative) Ur Leukocyte Esterase Trace H (Negative) Urine WBC (Auto) 0-5 (0-5) /hpf Urine RBC (Auto) 0-2 (0-2) /hpf U Hyaline Cast (Auto) 0-2 (0-2) /lpf U Epithel Cells (Auto) 0-2 (0-2) /hpf Urine Bacteria (Auto) None Seen (None Seen) Urine Comment Diagnostic Findings CT head Findings: There is no sign of intracranial hemorrhage. There is normal [place]-white matter differentiation with no sign of acute or old infarction. No midline shift or other form of herniation is identified. There is no hydrocephalus. No obvious mass lesion is seen on this noncontrast examination. The visualized portions of the orbits and paranasal sinuses appear unremarkable. The mastoid air cells appear clear Impression: Unremarkable noncontrast CT of the brain CXR Findings: There is mild bilateral lung base atelectasis. The heart is mildly enlarged. No pleural effusion or pneumothorax is seen. There were small nodular opacities in the left lung apex and right upper lobe No fracture is noted. There is a prosthetic cardiac valve. Sternal wires are present Impression: 1. Mild bilateral lung base atelectasis 2. Suspected small pulmonary nodules, indeterminate in nature. A follow-up chest CT could be considered 3. Mild cardiomegaly CT abdomen / pelvis Impression: 1. No sign of appendicitis 2. Large 7 x 4 cm acute intramuscular hematoma involving the right rectus abdominis in the right lower quadrant 3. Large 6.4 cm liver mass, likely a benign hemangioma. Correlation with liver sonography may be useful 4. Multiple hepatic cysts 5. Hepatomegaly 6. Cholelithiasis without evidence of acute cholecystitis 7. Diverticulosis without definite diverticulitis 8. Small right inguinal hernia containing only fat US Liver FINDINGS: Liver: Complex lesion in the right hepatic lobe measuring 5.3 x 5.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 MRI is the best test to further characterize. Multiple additional cysts within the liver measuring up to 8 cm. Gallbladder: Cholelithiasis without acute cholecystitis. Common bile duct: CBD measures 5 mm. Pancreas: Unremarkable as visualized. Right kidney: Unremarkable. No hydronephrosis. IMPRESSION: 1. Complex lesion in the right hepatic lobe measuring 5.3 x 5.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 MRI is the best test to further characterize. 2. Multiple additional cysts within the liver measuring up to 8 cm. 3. Cholelithiasis without acute cholecystitis.
[2024-09-05 23:22] LABS: Hematocrit (blood only) 33.2 % (37.0-47.0); Hemoglobin 11.2 g/dl (12.0-16.0)
[2024-09-06] MEDS: ACETAMINOPHEN 325 MG TAB PO PRN (01:53)
[2024-09-06 04:51] LABS: Hematocrit (blood only) 33.7 % (37.0-47.0); Hemoglobin 11.0 g/dl (12.0-16.0); Mean Corpuscular Hemoglobin 29.7 pg (25.0-34.0); Mean Corpuscular Volume 91.1 fL (80.0-100.0); Platelet Count 135 K/uL (130-400); RDW Standard Deviation 42.8 fL (36.4-46.3); Red Blood Count 3.70 M/uL (4.20-5.40); White Blood Count 5.32 K/ul (4.8-10.8)
[2024-09-06 05:18] LABS: INR 2.4 (0.9-1.1); Prothrombin Time 23.9 Seconds (9.0-12.0)
[2024-09-06 05:21] LABS: Anion Gap 4.0 (3-11); Blood Urea Nitrogen 10.0 mg/dl (6-23); Calcium 8.5 mg/dl (8.6-10.3); Carbon Dioxide 27.0 mmol/L (21-32); Chloride 111.0 mmol/L (98-107); Creatinine Clr Calc Pharmacy 98.7 ml/min; Glucose 102.0 mg/dl (70-99(Fasting)); Potassium 3.8 mmol/L (3.5-5.1); Sodium 142.0 mmol/L (136-145)
--- NOTE | 2024-09-06 08:30 | Surgery Consultation ---
Date of Consultation September 06, 2024 Assessment & Plan (1) Abdominal pain: (2) Hematoma of rectus sheath: (3) Fall: (4) Chronic anticoagulation: 64 yo female s/p fall on the grass with right rectus sheath hematoma. No evidence of acute bleed. Hemodynamically stable. No surgical intervention required at this time. Recommend abdominal binder for compression and can start heat application 20 minutes at a time to help body reabsorb hematoma once discharge. Recommend no heavy lifting over 10 pounds for 2 weeks, no strenuous activity. Advised patient to wear binder as much as possible. Report back to emergency room with increasing abdominal pain, enlarging mass of the abdominal wall or any dizziness or lightheadedness. Okay to advance diet to regular diet. Our services signing off, call with questions/concerns. Discussed with Dr. Klein who agrees with above. History of Present Illness Reason for Consultation: Right rectus sheath hematoma, s/p fall Requesting Physician: Kirby Harman MD Attending Physician: Lotus Mays MD History of Present Illness Sheila is a 64 yo female with history of mechanical heart valve placement in 2005 on chronic anticoagulation with Coumadin who presented to ED with abdominal pain s/p fall (slipped on grass) on . CT scan showing right rectus sheath hematoma, no evidence of acute bleed. Hemodynamically stable. She states she is having only mild discomfort on the right lower abdomen at rest about 2/10 currently. Pain worse with activity. No bruising of abdominal wall. Currently has abdominal binder in place. No chest pain, shortness of breath, dizziness, lightheadedness. Allergies Allergy/AdvReac Type Severity Reaction Status Date / Time cephalexin Allergy Rash Verified 09/05/24 17:19 Home Medications Medication Instructions Recorded Confirmed Type aspirin 81 mg tablet,delayed 81 mg PO QAM 09/05/24 09/05/24 History release atorvastatin 10 mg tablet 10 mg PO QAM 09/05/24 09/05/24 History furosemide 20 mg tablet 20 mg PO DAILY PRN Edema 09/05/24 09/05/24 History metoprolol tartrate 25 mg tablet 25 mg PO AMHS 09/05/24 09/05/24 History warfarin 5 mg tablet 5 - 10 mg PO UD 09/05/24 09/05/24 History Patient History Medical History (Updated 09/06/24 @ 00:03 by Corky Norwood DO) Current use of fdc anticoagulation Chronic pain of left knee Hyperlipidemia Surgical History (Updated 09/05/24 @ 22:07 by Kirby Harman MD) Hx of tonsillectomy S/P mitral valve replacement Family History (Updated 09/05/24 @ 22:08 by Kirby Harman MD) Mother Cancer Social History Smoking Status: Former smoker Tobacco Type: Cigarettes Second Hand Exposure: No; Do You Dip or Chew Tobacco: No; Tobacco Cessation Education Requested by Patient: No Hx Alcohol Use: No Hx Substance Use: No Preferred Language: Kuwaiti Communication Ability: Effective Director Client Required: No Beliefs That Will Affect Care: None Current Living Situation: Spouse Other Information That Helps Us Care for You: No Feels Safe at Home: Yes Safety Concerns: Feels Safe At This Time Assistive Devices: None Review of Systems Review of Systems: All systems reviewed & are unremarkable except as noted in HPI & below Physical Exam Constitutional: WD/WN, vitals as above cooperative and comfortable; no acute distress and not ill appearing Respiratory: normal respiratory effort; no respiratory distress Gastrointestinal (Abdomen): Inspection/Auscultation: abdomen normal to inspection; abdomen not distended and no abdominal wall ecchymosis Percussion/Palpation: + abdomen tender (Right mid and RLQ) and abdomen soft; no guarding, abdomen not rigid and abdomen not firm Skin: no rashes, warm and dry Psychiatric: A+Ox3, euthymic affect Results & Data Vital Signs (Past 12 Hours) Vital Signs Temp Pulse Pulse Resp BP BP Pulse Ox 09/06/24 08:06 72 18 142/85 H 100 09/06/24 07:25 60 09/06/24 05:45 62 14 143/92 H 94 09/06/24 02:14 36.6 C 62 18 116/64 96 09/06/24 01:30 36.7 C 64 17 121/82 98 09/06/24 01:00 60 17 107/70 94 09/06/24 00:30 61 16 124/82 97 09/06/24 00:00 62 18 134/82 97 09/05/24 23:30 71 19 145/90 H 98 09/05/24 23:02 69 14 98 09/05/24 23:02 67 14 96 09/05/24 23:00 68 17 134/93 96 09/05/24 22:30 67 21 140/95 09/05/24 22:30 72 15 140/95 97 09/05/24 22:00 63 16 143/93 H 97 09/05/24 21:31 70 22 179/86 H 96 09/05/24 21:27 70 09/05/24 21:00 55 L 17 141/88 H 98 09/05/24 20:31 64 18 140/79 96 O2 Del Method 09/06/24 08:06 Room Air 09/06/24 07:25 09/06/24 05:45 Room Air 09/06/24 02:14 Room Air 09/06/24 01:30 Room Air 09/06/24 01:00 Room Air 09/06/24 00:30 Room Air 09/06/24 00:00 Room Air 09/05/24 23:30 Room Air 09/05/24 23:02 09/05/24 23:02 Room Air 09/05/24 23:00 09/05/24 22:30 09/05/24 22:30 09/05/24 22:00 09/05/24 21:31 09/05/24 21:27 09/05/24 21:00 09/05/24 20:31 Laboratory Results 09/06/24 09/05/24 09/05/24 Range/Units 04:20 Unknown 23:00 WBC 5.32 (4.8-10.8) K/ul RBC 3.70 L (4.20-5.40) M/uL Hgb 11.0 L 11.2 L (12.0-16.0) g/dl Hct 33.7 L 33.2 L (37.0-47.0) % MCV 91.1 (80.0-100.0) fL MCH 29.7 (25.0-34.0) pg MCHC 32.6 (32.0-36.0) g/dL RDW Std Deviation 42.8 (36.4-46.3) fL RDW Coeff of [place]ita 13.0 (11.5-14.5) % Plt Count 135 (130-400) K/uL MPV 9.7 (9.4-12.4) fL Immature Gran % (Auto) % Neut % (Auto) % Lymph % (Auto) % [place] % (Auto) % Eos % (Auto) % Baso % (Auto) % Neut # (Auto) (1.40-6.50) K/uL Lymph # (Auto) (1.20-3.40) K/uL [place] # (Auto) (0.11-0.59) K/uL Eos # (Auto) (0.00-0.50) K/uL Baso # (Auto) (0.00-0.20) K/uL Immature Gran # (Auto) (0.01-0.20) K/uL PT 23.9 H (9.0-12.0) Seconds INR 2.4 H (0.9-1.1) APTT (21-31) Seconds PTT Ratio Sodium 142 (136-145) mmol/L Potassium 3.8 (3.5-5.1) mmol/L Chloride 111 H (98-107) mmol/L Carbon Dioxide 27 (21-32) mmol/L Anion Gap 4 (3-11) BUN 10 (6-23) mg/dl Creatinine 0.57 L (0.6-1.2) mg/dl Est Cr Clr Drug Dosing 98.7 ml/min eGFR 100.16 BUN/Creatinine Ratio 17.5 (10-20) Glucose 102 H (70-99(Fasting)) mg/dl Lactate (0.4-2.0) mmol/L Calcium 8.5 L (8.6-10.3) mg/dl Total Bilirubin (0.2-1.0) mg/dl AST (13-39) U/L ALT (7-52) U/L Alkaline Phosphatase (34-104) U/L Total Protein (6.0-8.3) gm/dl Albumin (3.4-5.0) gm/dl Globulin (2.5-4.0) gm/dl Albumin/Globulin Ratio (0.9-2) Lipase (11-82) U/L Urine Color Yellow Urine Appearance Clear (Clear) Urine pH 7.5 (4.5-7.5) Ur Specific [place] 1.006 (1.000-1.030) Urine Protein Negative (Negative) Urine Glucose (UA) Negative (Negative) Urine Ketones Negative (Negative) Urine Blood Negative (Negative) Urine Nitrite Negative (Negative) Urine Bilirubin Negative (Negative) Urine Urobilinogen Negative (Negative) Ur Leukocyte Esterase Trace H (Negative) Urine WBC (Auto) 0-5 (0-5) /hpf Urine RBC (Auto) 0-2 (0-2) /hpf U Hyaline Cast (Auto) 0-2 (0-2) /lpf U Epithel Cells (Auto) 0-2 (0-2) /hpf Urine Bacteria (Auto) None Seen (None Seen) Urine Comment 09/05/24 Range/Units 16:55 WBC 7.43 (4.8-10.8) K/ul RBC 4.23 (4.20-5.40) M/uL Hgb 12.5 (12.0-16.0) g/dl Hct 38.3 (37.0-47.0) % MCV 90.5 (80.0-100.0) fL MCH 29.6 (25.0-34.0) pg MCHC 32.6 (32.0-36.0) g/dL RDW Std Deviation 42.5 (36.4-46.3) fL RDW Coeff of [place]ita 12.9 (11.5-14.5) % Plt Count 157 (130-400) K/uL MPV 9.9 (9.4-12.4) fL Immature Gran % (Auto) 0.3 % Neut % (Auto) 71.1 % Lymph % (Auto) 19.8 % [place] % (Auto) 7.1 % Eos % (Auto) 1.3 % Baso % (Auto) 0.4 % Neut # (Auto) 5.28 (1.40-6.50) K/uL Lymph # (Auto) 1.47 (1.20-3.40) K/uL [place] # (Auto) 0.53 (0.11-0.59) K/uL Eos # (Auto) 0.10 (0.00-0.50) K/uL Baso # (Auto) 0.03 (0.00-0.20) K/uL Immature Gran # (Auto) 0.02 (0.01-0.20) K/uL PT 26.2 H (9.0-12.0) Seconds INR 2.6 H (0.9-1.1) APTT 39 H (21-31) Seconds PTT Ratio 1.4 Sodium 142 (136-145) mmol/L Potassium 4.0 (3.5-5.1) mmol/L Chloride 110 H (98-107) mmol/L Carbon Dioxide 27 (21-32) mmol/L Anion Gap 5 (3-11) BUN 14 (6-23) mg/dl Creatinine 0.62 (0.6-1.2) mg/dl Est Cr Clr Drug Dosing 90.8 ml/min eGFR 98.15 BUN/Creatinine Ratio 22.6 H (10-20) Glucose 90 (70-99(Fasting)) mg/dl Lactate 1.1 (0.4-2.0) mmol/L Calcium 8.9 (8.6-10.3) mg/dl Total Bilirubin 0.8 (0.2-1.0) mg/dl AST 26 (13-39) U/L ALT 23 (7-52) U/L Alkaline Phosphatase 52 (34-104) U/L Total Protein 6.3 (6.0-8.3) gm/dl Albumin 4.3 (3.4-5.0) gm/dl Globulin 2.0 L (2.5-4.0) gm/dl Albumin/Globulin Ratio 2.2 H (0.9-2) Lipase 28 (11-82) U/L Urine Color Urine Appearance (Clear) Urine pH (4.5-7.5) Ur Specific [place] (1.000-1.030) Urine Protein (Negative) Urine Glucose (UA) (Negative) Urine Ketones (Negative) Urine Blood (Negative) Urine Nitrite (Negative) Urine Bilirubin (Negative) Urine Urobilinogen (Negative) Ur Leukocyte Esterase (Negative) Urine WBC (Auto) (0-5) /hpf Urine RBC (Auto) (0-2) /hpf U Hyaline Cast (Auto) (0-2) /lpf U Epithel Cells (Auto) (0-2) /hpf Urine Bacteria (Auto) (None Seen) Urine Comment Diagnostic Findings Clinical History: Evaluate for appendicitis Technique: Axial computed tomography images were obtained of the abdomen and pelvis after the administration of intravenous contrast. No prior CT is available for comparison. Findings: The liver is enlarged measuring 20.1 cm. There is no sign of cirrhosis or significant fatty infiltration. There is a 6.4 cm heterogeneously enhancing mass in the right hepatic lobe. There is an 8.4 cm cyst in the left hepatic lobe with 2 adjacent smaller cysts. There are several smaller renal cysts, measuring up to 1.6 cm. The portal vein is patent. There are multiple gallstones. There is no definite sign of acute cholecystitis. No bile duct dilatation is noted. The spleen is of normal size. No focal splenic lesion is evident. The pancreas appears normal with no sign of acute or chronic pancreatitis and no mass lesion noted. The pancreatic duct is of normal caliber. The adrenal glands appear unremarkable. No definite renal or proximal ureteral calculi are seen on this contrast-enhanced study. There is no hydronephrosis or perinephric stranding. No renal mass lesion is identified. The aorta is of normal caliber. No abdominal adenopathy is seen. There is a small umbilical hernia containing only fat. The stomach appears normal. There is no sign of small bowel obstruction. There is sigmoid diverticulosis without evidence of diverticulitis. No free intraperitoneal fluid or air is identified. There is no definite sign of appendicitis. There is an acute hematoma in the right rectus abdominis muscle in the right lower abdomen, measuring up to 7 x 4 cm in size. No distal ureteral or bladder calculi are seen. The bladder is decompressed. The iliac arteries are of normal caliber. No pelvic adenopathy is noted. There is a 1 cm follicle in the left ovary and there is a 1.3 cm follicle in the right ovary. There is a small right inguinal hernia containing only fat. There is mild subsegmental atelectasis in both lung bases. There is a mitral valve placement. Mild thoracolumbar degenerative disc disease is seen. No fracture is identified. No focal osseous lesion is seen Impression: 1. No sign of appendicitis 2. Large 7 x 4 cm acute intramuscular hematoma involving the right rectus abdominis in the right lower quadrant 3. Large 6.4 cm liver mass, likely a benign hemangioma. Correlation with liver sonography may be useful 4. Multiple hepatic cysts 5. Hepatomegaly 6. Cholelithiasis without evidence of acute cholecystitis 7. Diverticulosis without definite diverticulitis 8. Small right inguinal hernia containing only fat I personally reviewed ct scan images and concur with above findings.
[2024-09-06] MEDS: METOPROLOL TARTRATE 25 MG TAB PO SCH ×2 (09:08→20:51)
[2024-09-06 12:40] LABS: Magnesium 2.1 mg/dl (1.7-2.4)
--- NOTE | 2024-09-06 13:30 | Cardiology Consultation ---
Date of Consultation September 06, 2024 Assessment & Plan (1) Hematoma of rectus sheath: (2) History of mitral valve replacement with mechanical valve: (3) Chronic anticoagulation: (4) Bradycardia: Plan Assessment: 64 year old female with remote history of mechanical mitral valve replacement in 2005 on chronic warfarin therapy presented for abdominal pain that started one day after sustaining a ground level fall after slipping in the grass. During course of evaluation in the ER, patient underwent CT imaging demonstrating a rectal sheath hematoma. Also, nurse monitoring had alarmed showing brief episode of bradycardia. Cardiology was consulted for further evaluation and recommendations. Plan: 1. Hematoma of rectus sheath 2. History of MVR with mechanical valve 3. Chronic anticoagulation -Patient is resting comfortably in bed, but does endorse right lower quadrant abdominal pain. -General surgery has evaluated patient, recommended close monitoring and use of a abdominal binder. No indication for surgical intervention at this time. -H/H 11.0/33.7, will continue to be monitoring closely by primary team -BP stable. -INR 2.4. Goal INR in the setting of this patient's mechanical mitral valve should be 2.5-3.5. Will discuss with Dr. Marcelino to ensure INR levels are kept therapeutic. 4. Bradycardia: -Review of telemetry shows 20 second period at 1339 in which patient was noted to be bradycardic with lowest R-R interval 38bpm (range 38-45bpm), patient had similar drop into the mid 40's during our conversation and remained asymptomatic. She notes that she finds that she often holds her breath. -patient is currently on metoprolol. Will continue metoprolol tartrate, but at reduced dose of 12.5mg PO BID -Continue to monitor on telemetry. Case has been discussed with Dr. Marcelino. Further recommendations regarding plan of care as per his assessment. I spent a total of 40 minutes on the date of service in preparation, delivery, documentation of the care provided to the patient excluding any time spent in the performance of separately billed services. GUANAKITO [facility] Supervising Physician Co-Signing Physician Notes Attending attestation: Case reviewed with the advanced practitioner. I have personally performed a history and physical examination on the patient. I have reviewed the advanced practitioner's documentation on the date of service referenced in note, and I agree with, and take responsibility for the plan of care. Subjective: Patient describes recent mechanical fall, having slipped on the grass. She did not have symptoms suggestive of a syncopal episode. Exam: Cardiovascular regular rhythm, crisp prosthetic heart sounds noted, no murmur Skin: Ecchymosis over the left lateral aspect of the buttocks and upper thigh, posterior aspect of left shoulder also ecchymotic Data: Telemetry reviewed, patient had several isolated very brief episodes of bradycardia at 11:15 AM, 11:45 AM, 12:10 PM, 12:23 PM today with brief episodes of bradycardia, heart rates down to the 20s very briefly for only 1 or 2 beats and then spontaneously improved to the 60s. The patient was awake and was talking on the telephone when this occurred she was asymptomatic. Impression/ Plan: Rectus sheath hematoma and patient was mechanical mitral valve, chronic anticoagulation with Coumadin, INR goal 2.5-3.5 (current level today 2.4). - Hemoglobin stable - General Surgery input noted and appreciated. Agree with abdominal binder - Plan to resume her warfarin this evening Asymptomatic bradycardia -Reduce metoprolol tartrate to 12.5 mg twice daily for now -Patient is asymptomatic from a heart rate perspective and depending upon how she does, will consider increasing back to her usual dose of 25 mg twice daily at discharge or keeping her on the lower dose. No indication for echocardiogram. Follow-up with cardiology in [place]. Case discussed with Dr Mays of the hospitalist service for the purpose of coordination of care. I spent a total of 25 minutes coordinating, documenting, and providing care for this patient excluding time spent in the performance of separately billed services or time spent by another provider. Benoit Marcelino DO History of Present Illness Reason for Consultation: Significant bradyarrhythmias Requesting Physician: Kaleb boogie Attending Physician: Lotus Mays MD History of Present Illness HPI: Patient is a 64 year old female with PMHx significant for Mitral valve disease s/p mechanical mitral valve replacement in 2005 on chronic warfarin, chronic left knee pain and HLD that presented to the ER with complaints of abdominal pain following a recent fall. Patient reports that she slipped on a grassy hill and fell hitting her back, left leg and head. This took place 4 days ago and since that time she has had abdominal pain. patient had initially contacted her PCP who had advised her to present to the ER for further evaluation due to her extent of injury and being on warfarin. Of note, Patient follows with Dr. Dixon from [place] cardiology. Upon seeing patient today in examination, she is feeling well. Admits to feeling sore, endorsing abdominal discomfort in particular in the right mid- lower quadrant as well las left hip/upper leg pain. She has significant ecchymosis on the left lateral aspect of her hip/thigh region. Denies any chest pain, pressure or palpitations. No lightheadedness, dizziness or syncope. Patient states her recent fall was purely mechanical s/t slipping. EKG on arrival shows NSR Review of telemetry demonstrates SR rates 60's. further review shows approx 20 seconds in which patient had become bradycardic with lowest rate R-R interval 38bpm, averaging 42bpm. Patient remained asympotmatic and states that he will often find herself "holding her breath". during time of examination, patient's heart rate had dipped into the mid-40's again with no symptoms. chest xray: Impression: 1. Mild bilateral lung base atelectasis 2. Suspected small pulmonary nodules, indeterminate in nature. A follow-up chest CT could be considered 3. Mild cardiomegaly Head CT: Impression: Unremarkable noncontrast CT of the brain Abdomen/Pelvis CT: Impression: 1. No sign of appendicitis 2. Large 7 x 4 cm acute intramuscular hematoma involving the right rectus abdominis in the right lower quadrant 3. Large 6.4 cm liver mass, likely a benign hemangioma. Correlation with liver sonography may be useful 4. Multiple hepatic cysts 5. Hepatomegaly 6. Cholelithiasis without evidence of acute cholecystitis 7. Diverticulosis without definite diverticulitis 8. Small right inguinal hernia containing only fat Abdomen US: IMPRESSION: 1. Complex lesion in the right hepatic lobe measuring 5.3 x 5.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 MRI is the best test to further characterize. 2. Multiple additional cysts within the liver measuring up to 8 cm. 3. Cholelithiasis without acute cholecystitis. [facility] and most recent visit was 09/02/24 Goal INR is 2.5-3.5. INR on the date of visit was 2.79 Allergies Allergy/AdvReac Type Severity Reaction Status Date / Time cephalexin Allergy Rash Verified 09/05/24 17:19 Home Medications Medication Instructions Recorded Confirmed Type aspirin 81 mg tablet,delayed 81 mg PO QAM 09/05/24 09/05/24 History release atorvastatin 10 mg tablet 10 mg PO QAM 09/05/24 09/05/24 History furosemide 20 mg tablet 20 mg PO DAILY PRN Edema 09/05/24 09/05/24 History metoprolol tartrate 25 mg tablet 25 mg PO AMHS 09/05/24 09/05/24 History warfarin 5 mg tablet 5 - 10 mg PO UD 09/05/24 09/05/24 History Patient History Medical History (Updated 09/06/24 @ 15:14 by GUANAKITO Benavidez) Current use of detention anticoagulation Chronic pain of left knee Hyperlipidemia Surgical History (Updated 09/06/24 @ 15:14 by GUANAKITO Benavidez) Hx of tonsillectomy S/P mitral valve replacement Family History (Updated 09/05/24 @ 22:08 by Kirby Harman MD) Mother Cancer Social History Smoking Status: Former smoker Tobacco Type: Cigarettes Second Hand Exposure: No; Do You Dip or Chew Tobacco: No; Tobacco Cessation Education Requested by Patient: No Hx Alcohol Use: No Hx Substance Use: No Preferred Language: Albanian Communication Ability: Effective Shear Setter Required: No Beliefs That Will Affect Care: None Current Living Situation: Spouse Other Information That Helps Us Care for You: No Feels Safe at Home: Yes Safety Concerns: Feels Safe At This Time Assistive Devices: None Review of Systems Review of Systems: All systems reviewed & are unremarkable except as noted in HPI & below Physical Exam Constitutional: well developed and well nourished; no acute distress and not ill appearing Neck: normal visual inspection and trachea midline Respiratory: normal respiratory effort, lungs clear to auscultation Cardiovascular: Heart Sounds: normal S1, normal S2 and + click (presence of mechanical Mitral valve) Vessels: dorsalis pedis pulses present; no JVD Extremities: no edema Skin: no rashes, warm and dry + ecchymosis (large area of ecchymosis noted on lateral aspect left hip/thigh) Psychiatric: A+Ox3, euthymic affect Results & Data Vital Signs (Past 12 Hours) Vital Signs Temp Pulse Pulse Resp BP Pulse Ox O2 Del Method 09/06/24 10:21 21 L 09/06/24 08:06 72 18 142/85 H 100 Room Air 09/06/24 07:25 60 09/06/24 05:45 62 14 143/92 H 94 Room Air 09/06/24 02:14 36.6 C 62 18 116/64 96 Room Air 09/06/24 01:30 36.7 C 64 17 121/82 98 Room Air Laboratory Results Cardiac Enzymes 09/05/24 Range/Units 16:55 AST 26 (13-39) U/L Coagulation 09/05/24 09/06/24 Range/Units 16:55 04:20 PT 26.2 H 23.9 H (9.0-12.0) Seconds APTT 39 H (21-31) Seconds CBC 09/05/24 09/05/24 09/06/24 Range/Units 16:55 23:00 04:20 WBC 7.43 5.32 (4.8-10.8) K/ul RBC 4.23 3.70 L (4.20-5.40) M/uL Hgb 12.5 11.2 L 11.0 L (12.0-16.0) g/dl Hct 38.3 33.2 L 33.7 L (37.0-47.0) % Plt Count 157 135 (130-400) K/uL Neut # (Auto) 5.28 (1.40-6.50) K/uL Lymph # (Auto) 1.47 (1.20-3.40) K/uL [place] # (Auto) 0.53 (0.11-0.59) K/uL Eos # (Auto) 0.10 (0.00-0.50) K/uL Baso # (Auto) 0.03 (0.00-0.20) K/uL Comprehensive Metabolic Panel 09/05/24 09/06/24 Range/Units 16:55 04:20 Sodium 142 142 (136-145) mmol/L Potassium 4.0 3.8 (3.5-5.1) mmol/L Chloride 110 H 111 H (98-107) mmol/L Carbon Dioxide 27 27 (21-32) mmol/L BUN 14 10 (6-23) mg/dl Creatinine 0.62 0.57 L (0.6-1.2) mg/dl Glucose 90 102 H (70-99(Fasting)) mg/dl Calcium 8.9 8.5 L (8.6-10.3) mg/dl AST 26 (13-39) U/L ALT 23 (7-52) U/L Alkaline Phosphatase 52 (34-104) U/L Total Protein 6.3 (6.0-8.3) gm/dl Albumin 4.3 (3.4-5.0) gm/dl Intake and Output 09/06/24 09/06/24 09/06/24 06:59 14:59 22:59 Other: # Unmeasured Voids 1 3 Weight 79 kg Weight Measurement Method Built in [facility] [place] [address] IN/OBS CONSULT LVL 5,80M Patient Type New Diagnoses Hematoma of rectus sheath S30.1XXA History of mitral valve replacement with mechanical valve Z95.2 Chronic anticoagulation Z79.01 Bradycardia R00.1 Time Spent (min) 65 Comment 40 minutes were spent by GUANAKITO Lee, 25 minutes by Debbie Marcelino Do
--- NOTE | 2024-09-06 16:07 | Hospitalist Progress Note ---
Date of Service September 06, 2024 Assessment & Plan (1) Abdominal pain: (2) Intramuscular hematoma: Plan: Pt s/p mechanical fall on , presents with abdominal pain since Thursday On anticoagulation, given hx of mechanical mitral valve CT abd/pelvis - Large 7 x 4 cm acute intramuscular hematoma involving the right rectus abdominis in the right lower quadrant Current INR 2.6 Pt was given abdominal binder in ER ER provider discussed w/ gen. surgery - Dr. Klein Will cont. to monitor H&H closely, Hgb 12 in ER at 5pm, will re-check now Current BP 140/95 - pt been hemodynamically stable in ER, will cont. to closely monitor re-check INR in the morning, hold warfarin tonight If INR < 2.5 , may need to start IV heparin INR goal given her mechanical mitral valve 2.5-3.5 INR is 2.4 today and will give 5 mg Coumadin this afternoon and will recheck INR tomorrow morning Appreciate surgery input and recommendation to continue conservative management Aspirin is on hold and will be restarted likely tomorrow following checking of hemoglobin Significant bradycardia Noted to have very short episodes of bradycardia as low as 21/min without any symptoms Pt was previously on metoprolol 50 bid, recently changed to 25 bid. Pt reports she has palpitations if she does not take metoprolol, will cont. for now Appreciate cardiology input and recommendation- her metoprolol doses have been decreased to 12.5 mg twice daily by the life specialist Will observe in telemetry unit Liver cyst/s Pt aware and documented in her life specialist's note that she has hx of liver cyst Pt reports no work up in the past On current CT abd./pelvis - Large 6.4 cm liver mass, likely a benign hemangioma. Correlation with liver sonography may be useful . Multiple hepatic cysts Liver US - Complex lesion in the right hepatic lobe measuring 5.3 x 5.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 MRI is the best test to further characterize.Multiple additional cysts within the liver measuring up to 8 cm. Recommend outpt follow up Pulmonary nodules - incidental finding on CXR There were small nodular opacities in the left lung apex and right upper lobe Suspected small pulmonary nodules, indeterminate in nature. A follow-up chest CT could be considered Recommend outpt follow up Admission and Anticipated Discharge Date Admission Date: September 05, 2024 Subjective 09/06/2024 The patient was seen and examined in the emergency room She has minimal abdominal pain and denies any cardiac symptoms Noted to have episodes of bradycardia as low as 20s without any symptoms Review of Systems Review of Systems: all systems reviewed and are unremarkable except as noted below Physical Exam Physical Exam: lying in bed without any acute distress Constitutional: well developed, well nourished, + ill appearing and average body habitus Eyes: PERRL, conjunctivae normal, anicteric sclerae ENMT: external ear and nose normal, oropharynx normal Neck: trachea midline, no thyromegaly Respiratory: no respiratory distress Auscultation: + lungs not clear to auscultation Cardiovascular: Rate/Rhythm: regular rate, regular rhythm and + bradycardic Heart Sounds: normal S1, normal S2 and + murmur Extremities: + edema ( trace edema bilaterally) Gastrointestinal (Abdomen): Inspection/Auscultation: normal bowel sounds; abdomen not distended Percussion/Palpation: + abdomen tender ( minimally tender) and abdomen soft Musculoskeletal: no acute arthritis involving any of the joint Neurologic: normal touch/pain/proprioception and moves all extremities; no focal motor deficits Lymphatic: no cervical or axillary lymphadenopathy Results & Data Results & Data Vital Signs (Past 12 Hours) Vital Signs Temp Pulse Pulse Resp BP Pulse Ox O2 Del Method 09/06/24 15:38 36.5 C 75 18 154/84 H 99 Room Air 09/06/24 14:08 66 16 128/78 97 Room Air 09/06/24 10:21 21 L 09/06/24 08:06 72 18 142/85 H 100 Room Air 09/06/24 07:25 60 09/06/24 05:45 62 14 143/92 H 94 Room Air Laboratory Results Short CBC 09/05/24 09/05/24 09/06/24 Range/Units 16:55 23:00 04:20 WBC 7.43 5.32 (4.8-10.8) K/ul Hgb 12.5 11.2 L 11.0 L (12.0-16.0) g/dl Hct 38.3 33.2 L 33.7 L (37.0-47.0) % Plt Count 157 135 (130-400) K/uL BMP 09/05/24 09/06/24 16:55 04:20 Sodium 142 142 Potassium 4.0 3.8 Chloride 110 H 111 H Carbon Dioxide 27 27 BUN 14 10 Creatinine 0.62 0.57 L Glucose 90 102 H Calcium 8.9 8.5 L Liver Function 09/05/24 Range/Units 16:55 Total Bilirubin 0.8 (0.2-1.0) mg/dl AST 26 (13-39) U/L ALT 23 (7-52) U/L Alkaline Phosphatase 52 (34-104) U/L Albumin 4.3 (3.4-5.0) gm/dl Urine 09/05/24 Range/Units Unknown Urine Color Yellow Urine Appearance Clear (Clear) Urine pH 7.5 (4.5-7.5) Ur Specific [place] 1.006 (1.000-1.030) Urine Protein Negative (Negative) Urine Glucose (UA) Negative (Negative) Medications Administered Current Inpatient Medications Acetaminophen (Acetaminophen 325 Mg Tab) 650 mg PO Q4H PRN PRN Reason: Pain or Fever Stop: 10/05/24 22:50 Last Admin: 09/06/24 01:53 Dose: 650 mg Metoprolol Tartrate (Metoprolol Tartrate 25 Mg Tab) 12.5 mg PO BID ARUL Stop: 10/06/24 20:59 Oxycodone HCl (Oxycodone Hcl Ir 5 Mg Tab (Immediate Release)) 5 mg PO Q4H PRN PRN Reason: Pain Stop: 09/19/24 23:05
[2024-09-06] MEDS: WARFARIN SOD 5 MG TAB PO ONE (16:29)
[2024-09-07 07:28] LABS: Hematocrit (blood only) 35.6 % (37.0-47.0); Hemoglobin 11.7 g/dl (12.0-16.0); Immature Granulocytes # (auto) 0.05 K/uL (0.01-0.20); Immature Granulocytes % (auto) 1.0 %; Mean Corpuscular Hemoglobin 30.3 pg (25.0-34.0); Mean Corpuscular Volume 92.2 fL (80.0-100.0); Platelet Count 154 K/uL (130-400); RDW Standard Deviation 43.3 fL (36.4-46.3); Red Blood Count 3.86 M/uL (4.20-5.40); White Blood Count 5.25 K/ul (4.8-10.8)
[2024-09-07 07:52] LABS: INR 1.8 (0.9-1.1); Prothrombin Time 18.9 Seconds (9.0-12.0)
[2024-09-07 08:01] LABS: Anion Gap 3.0 (3-11); Blood Urea Nitrogen 12.0 mg/dl (6-23); Calcium 8.8 mg/dl (8.6-10.3); Carbon Dioxide 30.0 mmol/L (21-32); Chloride 108.0 mmol/L (98-107); Creatinine Clr Calc Pharmacy 96.8 ml/min; Glucose 102.0 mg/dl (70-99(Fasting)); Potassium 3.8 mmol/L (3.5-5.1); Sodium 141.0 mmol/L (136-145)
--- NOTE | 2024-09-07 08:40 | Cardiology Progress Note ---
Date of Service September 07, 2024 Assessment & Plan (1) Bradycardia: Plan 64 yo woman presenting s/p mechanical fall; no syncope - rectus sheath hematoma Cardiology Consult - bradycardia Data: Telemetry reviewed, patient had several isolated very brief episodes of bradycardia at 11:15 AM, 11:45 AM, 12:10 PM, 12:23 PM today with brief episodes of bradycardia, heart rates down to the 20s very briefly for only 1 or 2 beats and then spontaneously improved to the 60s. The patient was awake and was talking on the telephone when this occurred she was asymptomatic. Impression/ Plan: Rectus sheath hematoma and patient was mechanical mitral valve, chronic anticoagulation with Coumadin, INR goal 2.5-3.5 (current level today 2.4). - Hemoglobin stable - General Surgery input noted and appreciated. Agree with abdominal binder - Plan to resume her warfarin this evening Asymptomatic bradycardia * STOP Lopressor 12.5 mg po BID * START Toprol XL 12.5 mg po per day * K+ goal 4.5-5 * Mag goal >2 * Check TSH * MV sounds crisp on exam * Recent ECHO, as per patient, with no prosthetic valve pathology * Plans to follow up with Dr Dixon in [place] for ongoing care * Please call with any additional questions * 51 min spent addressing challenges, educating and advancing daily plan of care Nick Crandall Admission and Anticipated Discharge Date Admission Date: September 05, 2024 Subjective Events Overnight: * Telemetry - sinus 70's; intermittent junctional rhythm. * No events reported Subjective * No complaints Review of Systems Review of Systems: All systems reviewed & are unremarkable except as noted in HPI & below Physical Exam Physical Exam: Glasses No elevation in JVP S - mechanical, [id number] sans stethoscope 2/6 Systolic Murmur CTA B Abdominal Binder No C/C/E Warm and perfusing Results & Data Vital Signs (Past 12 Hours) Vital Signs Temp Pulse Pulse Resp BP Pulse Ox O2 Del Method 09/07/24 08:00 36.6 C 60 18 125/69 96 Room Air 09/07/24 07:23 60 09/07/24 04:09 36.7 C 64 17 112/72 95 Room Air 09/06/24 22:49 36.8 C 67 18 111/72 96 Room Air Laboratory Results Coagulation 09/07/24 Range/Units 06:20 PT 18.9 H (9.0-12.0) Seconds CBC 09/07/24 Range/Units 06:20 WBC 5.25 (4.8-10.8) K/ul RBC 3.86 L (4.20-5.40) M/uL Hgb 11.7 L (12.0-16.0) g/dl Hct 35.6 L (37.0-47.0) % Plt Count 154 (130-400) K/uL Neut # (Auto) 3.50 (1.40-6.50) K/uL Lymph # (Auto) 1.08 L (1.20-3.40) K/uL [place] # (Auto) 0.50 (0.11-0.59) K/uL Eos # (Auto) 0.09 (0.00-0.50) K/uL Baso # (Auto) 0.03 (0.00-0.20) K/uL Comprehensive Metabolic Panel 09/07/24 Range/Units 06:20 Sodium 141 (136-145) mmol/L Potassium 3.8 (3.5-5.1) mmol/L Chloride 108 H (98-107) mmol/L Carbon Dioxide 30 (21-32) mmol/L BUN 12 (6-23) mg/dl Creatinine 0.58 L (0.6-1.2) mg/dl Glucose 102 H (70-99(Fasting)) mg/dl Calcium 8.8 (8.6-10.3) mg/dl Intake and Output 09/06/24 09/07/24 09/07/24 22:59 06:59 14:59 Intake Total 250 / 250 Balance 250 / 250 Intake: Oral 250 / 250 Other: Other Intake Source sips # Unmeasured Voids 1 Weight 78.7 kg Weight Measurement Method [facility] [place] Medications Administered Current Inpatient Medications Acetaminophen (Acetaminophen 325 Mg Tab) 650 mg PO Q4H PRN PRN Reason: Pain or Fever Stop: 10/05/24 22:50 Last Admin: 09/06/24 20:55 Dose: 650 mg Metoprolol Tartrate (Metoprolol Tartrate 25 Mg Tab) 12.5 mg PO BID RAUL Stop: 10/06/24 20:59 Last Admin: 09/07/24 08:38 Dose: 12.5 mg Oxycodone HCl (Oxycodone Hcl Ir 5 Mg Tab (Immediate Release)) 5 mg PO Q4H PRN PRN Reason: Pain Stop: 09/19/24 23:05 PG Care Time/CCT Total # of Minutes Spent Total Time Spent with Patient: Total time spent is greater than 50% in coordination of care (as documented) at patient's floor/unit and/or counseling patient: Coding Level of Care Code 89614 SUB INP/OBS CARE 3/50MIN Diagnoses Bradycardia R00.1
[2024-09-07] MEDS: ENOXAPARIN 80 MG/0.8 ML SYR SQ ONE (09:14)
--- NOTE | 2024-09-07 14:49 | Hospitalist Progress Note ---
Date of Service September 07, 2024 Assessment & Plan (1) Abdominal pain: (2) Intramuscular hematoma: Plan: Pt s/p mechanical fall on , presents with abdominal pain since Thursday On anticoagulation, given hx of mechanical mitral valve CT abd/pelvis - Large 7 x 4 cm acute intramuscular hematoma involving the right rectus abdominis in the right lower quadrant Current INR 2.6 Pt was given abdominal binder in ER ER provider discussed w/ gen. surgery - Dr. Klein Will cont. to monitor H&H closely, Hgb 12 in ER at 5pm, will re-check now Current BP 140/95 - pt been hemodynamically stable in ER, will cont. to closely monitor re-check INR in the morning, hold warfarin tonight If INR < 2.5 , may need to start IV heparin INR goal given her mechanical mitral valve 2.5-3.5 INR is 2.4 today and will give 5 mg Coumadin this afternoon and will recheck INR tomorrow morning Appreciate surgery input and recommendation to continue conservative management Aspirin is on hold and will be restarted likely tomorrow following checking of hemoglobin INR is subtherapeutic at 1.8 Will give Lovenox 70 mg subcu this morning and give Coumadin 10 mg this evening Will check INR tomorrow and if it is therapeutic she will be discharged home Significant bradycardia Noted to have very short episodes of bradycardia as low as 21/min without any symptoms Pt was previously on metoprolol 50 bid, recently changed to 25 bid. Pt reports she has palpitations if she does not take metoprolol, will cont. for now Appreciate cardiology input and recommendation- her metoprolol doses have been decreased to 12.5 mg twice daily by the emergency department physician Will observe in telemetry unit Lopressor has been changed to Toprol-XL 12.5 mg daily Liver cyst/s Pt aware and documented in her emergency department physician's note that she has hx of liver cyst Pt reports no work up in the past On current CT abd./pelvis - Large 6.4 cm liver mass, likely a benign hemangioma. Correlation with liver sonography may be useful . Multiple hepatic cysts Liver US - Complex lesion in the right hepatic lobe measuring 5.3 x 5.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 MRI is the best test to further characterize.Multiple additional cysts within the liver measuring up to 8 cm. Recommend outpt follow up Pulmonary nodules - incidental finding on CXR There were small nodular opacities in the left lung apex and right upper lobe Suspected small pulmonary nodules, indeterminate in nature. A follow-up chest CT could be considered Recommend outpt follow up Likely discharge tomorrow Admission and Anticipated Discharge Date Admission Date: September 05, 2024 Subjective 09/06/2024 The patient was seen and examined in the emergency room She has minimal abdominal pain and denies any cardiac symptoms Noted to have episodes of bradycardia as low as 20s without any symptoms 09/07/2024 The patient was seen and examined in telemetry unit She has been stable and does not have any abdominal pain Her heart rate remains stable at 67 and did not have any more bradycardia arrhythmia Denies any other significant symptoms Review of Systems Review of Systems: all systems reviewed and are unremarkable except as noted below Physical Exam Physical Exam: lying in bed without any acute distress Constitutional: well developed, well nourished, + ill appearing and average body habitus Eyes: PERRL, conjunctivae normal, anicteric sclerae ENMT: external ear and nose normal, oropharynx normal Neck: trachea midline, no thyromegaly Respiratory: no respiratory distress Auscultation: + lungs not clear to auscultation Cardiovascular: Rate/Rhythm: regular rate, regular rhythm and + bradycardic Heart Sounds: normal S1, normal S2 and + murmur Extremities: + edema ( trace edema bilaterally) Gastrointestinal (Abdomen): Inspection/Auscultation: normal bowel sounds; abdomen not distended Percussion/Palpation: + abdomen tender ( minimally tender) and abdomen soft Neurologic: normal touch/pain/proprioception and moves all extremities; no focal motor deficits Lymphatic: no cervical or axillary lymphadenopathy Results & Data Results & Data Vital Signs (Past 12 Hours) Vital Signs Temp Pulse Pulse Resp BP Pulse Ox O2 Del Method 09/07/24 14:24 67 09/07/24 11:46 36.7 C 70 18 126/76 98 Room Air 09/07/24 08:00 36.6 C 60 18 125/69 96 Room Air 09/07/24 07:23 60 09/07/24 04:09 36.7 C 64 17 112/72 95 Room Air Laboratory Results Short CBC 09/07/24 Range/Units 06:20 WBC 5.25 (4.8-10.8) K/ul Hgb 11.7 L (12.0-16.0) g/dl Hct 35.6 L (37.0-47.0) % Plt Count 154 (130-400) K/uL BMP 09/07/24 06:20 Sodium 141 Potassium 3.8 Chloride 108 H Carbon Dioxide 30 BUN 12 Creatinine 0.58 L Glucose 102 H Calcium 8.8 Medications Administered Current Inpatient Medications Acetaminophen (Acetaminophen 325 Mg Tab) 650 mg PO Q4H PRN PRN Reason: Pain or Fever Stop: 10/05/24 22:50 Last Admin: 09/06/24 20:55 Dose: 650 mg Metoprolol Tartrate (Metoprolol Tartrate 25 Mg Tab) 12.5 mg PO BID RAUL Stop: 10/06/24 20:59 Last Admin: 09/07/24 08:38 Dose: 12.5 mg Oxycodone HCl (Oxycodone Hcl Ir 5 Mg Tab (Immediate Release)) 5 mg PO Q4H PRN PRN Reason: Pain Stop: 09/19/24 23:05
[2024-09-07] MEDS: WARFARIN SOD 10 MG TAB PO ONE (16:19)
[2024-09-07] MEDS: POTASSIUM CHLORIDE CRTAB 20 MEQ TABCR PO STA (16:21)
[2024-09-08 07:18] LABS: Hematocrit (blood only) 34.6 % (37.0-47.0); Hemoglobin 11.3 g/dl (12.0-16.0); Immature Granulocytes # (auto) 0.01 K/uL (0.01-0.20); Immature Granulocytes % (auto) 0.2 %; Mean Corpuscular Hemoglobin 29.7 pg (25.0-34.0); Mean Corpuscular Volume 90.8 fL (80.0-100.0); Platelet Count 150 K/uL (130-400); RDW Standard Deviation 42.2 fL (36.4-46.3); Red Blood Count 3.81 M/uL (4.20-5.40); White Blood Count 4.31 K/ul (4.8-10.8)
[2024-09-08 07:41] LABS: Anion Gap 4.0 (3-11); Blood Urea Nitrogen 15.0 mg/dl (6-23); Calcium 8.8 mg/dl (8.6-10.3); Carbon Dioxide 28.0 mmol/L (21-32); Chloride 110.0 mmol/L (98-107); Creatinine Clr Calc Pharmacy 108.4 ml/min; Glucose 104.0 mg/dl (70-99(Fasting)); Potassium 4.2 mmol/L (3.5-5.1); Sodium 142.0 mmol/L (136-145)
[2024-09-08 07:43] LABS: INR 2.0 (0.9-1.1); Prothrombin Time 20.1 Seconds (9.0-12.0)
[2024-09-08] MEDS: ENOXAPARIN 80 MG/0.8 ML SYR SQ ONE (09:01)
[2024-09-08] MEDS: METOPROLOL SUCC 25MG EXT REL TAB PO SCH (09:02)
[2024-09-08 11:15] VITALS: PULSE 60; RESP 20; TEMP 97.9; O2SAT 98
--- NOTE | 2024-09-08 11:17 | Hospitalist Progress Note ---
Date of Service September 08, 2024 Assessment & Plan (1) Abdominal pain: (2) Intramuscular hematoma: Plan: Pt s/p mechanical fall on , presents with abdominal pain since Thursday On anticoagulation, given hx of mechanical mitral valve CT abd/pelvis - Large 7 x 4 cm acute intramuscular hematoma involving the right rectus abdominis in the right lower quadrant Current INR 2.6 Pt was given abdominal binder in ER ER provider discussed w/ gen. surgery - Dr. Klein Will cont. to monitor H&H closely, Hgb 12 in ER at 5pm, will re-check now Current BP 140/95 - pt been hemodynamically stable in ER, will cont. to closely monitor re-check INR in the morning, hold warfarin tonight If INR < 2.5 , may need to start IV heparin INR goal given her mechanical mitral valve 2.5-3.5 INR is 2.4 today and will give 5 mg Coumadin this afternoon and will recheck INR tomorrow morning Appreciate surgery input and recommendation to continue conservative management Aspirin is on hold and will be restarted likely tomorrow following checking of hemoglobin INR is subtherapeutic at 1.8 Will give Lovenox 70 mg subcu this morning and give Coumadin 10 mg this evening Will check INR tomorrow and if it is therapeutic she will be discharged home Her INR is 2.0 today and is not yet therapeuticwill give another dose of Lovenox 70 mg because, will advise her to take 10 mg of Coumadin this afternoon. Check INR tomorrow and get advice from the Coumadin clinic She remains free from any significant symptoms and hemoglobin did not drop She will be discharged home this afternoon Significant bradycardia Noted to have very short episodes of bradycardia as low as 21/min without any symptoms Pt was previously on metoprolol 50 bid, recently changed to 25 bid. Pt reports she has palpitations if she does not take metoprolol, will cont. for now Appreciate cardiology input and recommendation- her metoprolol doses have been decreased to 12.5 mg twice daily by the strategic sourcing specialist Will observe in telemetry unit Lopressor has been changed to Toprol-XL 12.5 mg daily Discussed with the strategic sourcing specialist and advised to discontinue Toprol-XL but the patient was not willing to do that given her prior experience off beta-nevin She was prescribed Toprol-XL 12.5 mg once daily and was advised to keep appointment with her strategic sourcing specialist to adjust medications if needed Liver cyst/s Pt aware and documented in her strategic sourcing specialist's note that she has hx of liver cyst Pt reports no work up in the past On current CT abd./pelvis - Large 6.4 cm liver mass, likely a benign hemangioma. Correlation with liver sonography may be useful . Multiple hepatic cysts Liver US - Complex lesion in the right hepatic lobe measuring 5.3 x 5.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 MRI is the best test to further characterize.Multiple additional cysts within the liver measuring up to 8 cm. Recommend outpt follow up Pulmonary nodules - incidental finding on CXR There were small nodular opacities in the left lung apex and right upper lobe Suspected small pulmonary nodules, indeterminate in nature. A follow-up chest CT could be considered Recommend outpt follow up Likely discharge tomorrow Admission and Anticipated Discharge Date Admission Date: September 05, 2024 Subjective 09/06/2024 The patient was seen and examined in the emergency room She has minimal abdominal pain and denies any cardiac symptoms Noted to have episodes of bradycardia as low as 20s without any symptoms 09/07/2024 The patient was seen and examined in telemetry unit She has been stable and does not have any abdominal pain Her heart rate remains stable at 67 and did not have any more bradycardia arrhythmia Denies any other significant symptoms 09/08/2024 The patient was seen and examined in telemetry unit She has been feeling much better with minimal pain in the abdomen No increasing swelling of the abdominal hematoma Denies any other significant symptoms Review of Systems Review of Systems: all systems reviewed and are unremarkable except as noted below Physical Exam Physical Exam: lying in bed without any acute distress Constitutional: well developed, well nourished, + ill appearing and average body habitus Eyes: PERRL, conjunctivae normal, anicteric sclerae ENMT: external ear and nose normal, oropharynx normal Neck: trachea midline, no thyromegaly Respiratory: no respiratory distress Auscultation: + lungs not clear to auscultation Cardiovascular: Rate/Rhythm: regular rate, regular rhythm and + bradycardic Heart Sounds: normal S1, normal S2 and + murmur Extremities: + edema ( trace edema bilaterally) Gastrointestinal (Abdomen): Inspection/Auscultation: normal bowel sounds; abdomen not distended Percussion/Palpation: + abdomen tender ( minimally tender) and abdomen soft Musculoskeletal: No acute arthritis involving any of the joint Neurologic: normal touch/pain/proprioception and moves all extremities; no focal motor deficits Lymphatic: no cervical or axillary lymphadenopathy Results & Data Results & Data Vital Signs (Past 12 Hours) Vital Signs Temp Pulse Pulse Resp BP Pulse Ox O2 Del Method 09/08/24 11:15 36.6 C 60 20 123/78 98 Room Air 09/08/24 09:41 51 L 09/08/24 09:00 70 09/08/24 07:25 36.4 C L 65 19 130/79 96 Room Air 09/08/24 03:06 36.5 C 54 L 16 133/78 100 Room Air Laboratory Results Short CBC 09/08/24 Range/Units 06:21 WBC 4.31 L (4.8-10.8) K/ul Hgb 11.3 L (12.0-16.0) g/dl Hct 34.6 L (37.0-47.0) % Plt Count 150 (130-400) K/uL BMP 09/08/24 06:21 Sodium 142 Potassium 4.2 Chloride 110 H Carbon Dioxide 28 BUN 15 Creatinine 0.52 L Glucose 104 H Calcium 8.8 Medications Administered Current Inpatient Medications Acetaminophen (Acetaminophen 325 Mg Tab) 650 mg PO Q4H PRN PRN Reason: Pain or Fever Stop: 10/05/24 22:50 Last Admin: 09/07/24 18:22 Dose: 650 mg Metoprolol Succinate (Metoprolol Succ 25mg Ext Rel Tab) 12.5 mg PO QAM RAUL Stop: 10/08/24 08:59 Last Admin: 09/08/24 09:02 Dose: 12.5 mg Oxycodone HCl (Oxycodone Hcl Ir 5 Mg Tab (Immediate Release)) 5 mg PO Q4H PRN PRN Reason: Pain Stop: 09/19/24 23:05 So September 03 so is to follow 1 1 gross yes still waiting for sensitivities excess nonviable soaking we will see next so so you know you have just only taking it something out of's so now
[2024-09-08 12:00] VITALS: BP 113/67
--- NOTE | 2024-09-08 16:57 | Discharge Summary ---
Date of Service September 08, 2024 Admission HPI Per Admitting Provider 64 yo F with hx of hyperlipidemia, chronic left knee pain, S/p mitral valve replacement in 2005 (follow w/ cardiology in [place]) on anticoagulation (follows with anticoagulation clinic - per most recent note reviewed - pt is to take warfarin 10 mg on Thursday and , then 5 mg all the other days - she is supposed to have INR re-checked on 10/13/2024) who presents with abdominal pain following a fall. Pt reports she fell on and hit her back, left leg and head. Then since Thursday she has been having right lower quadrant abdominal pain. She reports she slipped on the grass, she denies having any dizziness, lightheadedness, chest pain or shortness of breath prior to her fall. Today (09/05) she called her PCP office regarding her abdominal pain and was advised to present in to the ED given hx of fall and being on anticoagulation. In the ED CT head, and CT abdomen/pelvis were obtained. Rectal sheath hematoma was found on CT and was discussed w/ gen. surgery by ED provider. Given her anticoagulation pt will be admitted to the hospital for close monitoring of her H&H, INR, and hemodynamic status. Given her mechanical mitral valve pt requires anticoagulation. Currently pt is sitting up in bed in [facility]. She is awake, alert, answers appropriately. Denies any fevers, chills, cough, denies any chest pain, shortness of breath, denies any nausea or vomiting. 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 Discussed with the pt liver cyst/s - findings on CT/ liver US - hx of liver cyst documented in her motor equipment sergeant's note from 07/26/2024 -reviewed. Pt aware but not sure if she has one or multiple and what size. Also discussed possible small pulmonary nodules noted on CXR, and recommended outpt follow up. Reviewed pt's medications with her - says she is no longer on statin - she stopped taking it several months ago. Admission Exam Per Admitting Provider Constitutional: WD/WN, vitals as above Eyes: PERRL, conjunctivae normal, anicteric sclerae ENMT: external ear and nose normal, oropharynx normal Neck: supple Respiratory: normal respiratory effort, lungs clear to auscultation Cardiovascular: Rate/Rhythm: regular rate and regular rhythm +mechanical valve sound Gastrointestinal (Abdomen): soft, tender to palpation zachary. at RLQ, + abdominal binder Musculoskeletal: moves extremities Skin: no rashes, warm and dry Neurologic: PERRL, EOMI, accommodation nl, no face palsy, no dysarthria Principal Diagnosis Status post fall with abdominal intramuscular hematoma, mechanical mitral valve on anticoagulation with Coumadin, transient bradycardia without any symptoms, multiple hepatic cyst Discharge Exam lying in bed without any acute distress Constitutional well developed, well nourished, + ill appearing and average body habitus Eyes PERRL, conjunctivae normal, anicteric sclerae ENMT external ear and nose normal, oropharynx normal Neck trachea midline, no thyromegaly Respiratory no respiratory distress Auscultation: + lungs not clear to auscultation Cardiovascular Rate/Rhythm: regular rate, regular rhythm and + bradycardic Heart Sounds: normal S1, normal S2 and + murmur Extremities: + edema ( trace edema bilaterally) Gastrointestinal (Abdomen) Inspection/Auscultation: normal bowel sounds; abdomen not distended Percussion/Palpation: + abdomen tender ( minimally tender) and abdomen soft Neurologic normal touch/pain/proprioception and moves all extremities; no focal motor deficits Lymphatic no cervical or axillary lymphadenopathy Discharge Data Allergies Allergy/AdvReac Type Severity Reaction Status Date / Time cephalexin Allergy Rash Verified 09/05/24 17:19 Consultations 09/05/24 21:58 ED Decision to Admit Stat 09/05/24 22:10 Consult General Surgery Routine Ordered Studies 09/05/24 16:34 CT head/brain wo con Stat 09/05/24 16:35 CT abd pelvis IV con only Stat 09/05/24 19:18 US abdomen limited Stat Hospital Course (1) Abdominal pain: (2) Intramuscular hematoma: Pt s/p mechanical fall on , presents with abdominal pain since Thursday On anticoagulation, given hx of mechanical mitral valve CT abd/pelvis - Large 7 x 4 cm acute intramuscular hematoma involving the right rectus abdominis in the right lower quadrant Current INR 2.6 Pt was given abdominal binder in ER ER provider discussed w/ gen. surgery - Dr. Klein Will cont. to monitor H&H closely, Hgb 12 in ER at 5pm, will re-check now Current BP 140/95 - pt been hemodynamically stable in ER, will cont. to closely monitor re-check INR in the morning, hold warfarin tonight If INR < 2.5 , may need to start IV heparin INR goal given her mechanical mitral valve 2.5-3.5 INR is 2.4 today and will give 5 mg Coumadin this afternoon and will recheck INR tomorrow morning Appreciate surgery input and recommendation to continue conservative management Aspirin is on hold and will be restarted likely tomorrow following checking of hemoglobin INR is subtherapeutic at 1.8 Will give Lovenox 70 mg subcu this morning and give Coumadin 10 mg this evening Will check INR tomorrow and if it is therapeutic she will be discharged home Her INR is 2.0 today and is not yet therapeuticwill give another dose of Lovenox 70 mg because, will advise her to take 10 mg of Coumadin this afternoon. Check INR tomorrow and get advice from the Coumadin clinic She remains free from any significant symptoms and hemoglobin did not drop She will be discharged home this afternoon Significant bradycardia Noted to have very short episodes of bradycardia as low as 21/min without any symptoms Pt was previously on metoprolol 50 bid, recently changed to 25 bid. Pt reports she has palpitations if she does not take metoprolol, will cont. for now Appreciate cardiology input and recommendation- her metoprolol doses have been decreased to 12.5 mg twice daily by the motor equipment sergeant Will observe in telemetry unit Lopressor has been changed to Toprol-XL 12.5 mg daily Discussed with the motor equipment sergeant and advised to discontinue Toprol-XL but the patient was not willing to do that given her prior experience off beta-nevin She was prescribed Toprol-XL 12.5 mg once daily and was advised to keep appointment with her motor equipment sergeant to adjust medications if needed Liver cyst/s Pt aware and documented in her motor equipment sergeant's note that she has hx of liver cyst Pt reports no work up in the past On current CT abd./pelvis - Large 6.4 cm liver mass, likely a benign hemangioma. Correlation with liver sonography may be useful . Multiple hepatic cysts Liver US - Complex lesion in the right hepatic lobe measuring 5.3 x 5.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 MRI is the best test to further characterize.Multiple additional cysts within the liver measuring up to 8 cm. Recommend outpt follow up Pulmonary nodules - incidental finding on CXR There were small nodular opacities in the left lung apex and right upper lobe Suspected small pulmonary nodules, indeterminate in nature. A follow-up chest CT could be considered Recommend outpt follow up Likely discharge tomorrow Total Time Total Time Spent Total Time Spent (In Minutes): 45 minutes Discharge Plan Discharge Items Patient Disposition: Home - Self-Care Reason For Visit: INTRAMUSC, HEMATOMA ON AC Discharge Diagnosis: Status post fall with abdominal intramuscular hematoma, mechanical mitral valve on anticoagulation with Coumadin, transient bradycardia without any symptoms, multiple hepatic cyst Condition on Discharge: Fair Activity: Resume your previous activity Non-emergency contact: Primary Care Provider Call non-emergency contact if: you have any medication questions and your symptoms worsen Follow-up/Referrals: Dolores Kelley DO [Primary Care Provider] - (Date & Time 09/12/2024 11:40 AM Provider: Mike Mohr MD Family Medicine [facility]) Diet: Heart Healthy Addtl Attending Provider Instructions: Please take precautions to avoid falls Your metoprolol tartrate has been changed to succinate we did use a dose of 12.5 mg daily Continue other medications and keep appointment with coagulation clinic and maintain your INR between 2.5-3.5 Please make an appointment with your motor equipment sergeant as soon as you can Recommended to have a sleep study as an outpatient to rule out any possibility of sleep apnea Recommended to have follow-up appointments /imaging studies for multiple liver cyst and also small lung nodule Pending Studies at Discharge: No Stand-Alone Forms: My [employer], Smoking Cessation Medications and DC Order Prescriptions: New metoprolol succinate 25 mg Tablet Extended Release 24 Hr 12.5 mg PO QAM Qty: 30 0RF Continued warfarin 5 mg Tablet 5 - 10 mg PO UD Rx Instructions: DAILY DIRECTED BY ANTICOAGULATION CLINIC furosemide 20 mg Tablet 20 mg PO DAILY PRN (Reason: Edema) aspirin 81 mg Tablet,Delayed Release (Dr/Ec) 81 mg PO QAM Rx Instructions: TAKE WITH FOOD atorvastatin 10 mg Tablet 10 mg PO QAM Discontinued metoprolol tartrate 25 mg Tablet 25 mg PO [facility] Discharge Orders: Discharge Order (Routine); Ordered 09/08/24 Ordered By: Lotus Mays Admission Data Admit Date/Time: 09/05/24 22:51 Attending Provider: Lotus Mays Admit Provider: Kirby Harman Primary Care Provider: Dolores Kelley Other Providers: Kirby Harman; Laurent Klein Other Interventions: Discharge Summary Assessment (RN) Last Done: 09/08/24 11:58
--- NOTE | 2024-09-09 20:37 | Electrocardiogram Report ---
Test Reason : Blood Pressure : */* mmHG Vent. Rate : 53 BPM Atrial Rate : 53 BPM P-R Int : 144 ms QRS Dur : 92 ms QT Int : 488 ms P-R-T Axes : 41 9 70 degrees QTcB Int : 457 ms Sinus bradycardia Low voltage QRS Nonspecific ST and T wave abnormality Abnormal ECG When compared with ECG of 05-Sep-2024 16:59, Borderline criteria for Inferior infarct are no longer Present T wave inversion no longer evident in Inferior leads Confirmed by Mateo Temple ([id number]) on 09/09/2024 8:37:35 PM Referred By: REFERRED SELF Confirmed By: Mateo Temple
--- NOTE | 2024-09-09 20:37 | Electrocardiogram Report ---
Test Reason : Blood Pressure : */* mmHG Vent. Rate : 61 BPM Atrial Rate : 61 BPM P-R Int : 152 ms QRS Dur : 94 ms QT Int : 484 ms P-R-T Axes : -11 -7 -25 degrees QTcB Int : 487 ms Normal sinus rhythm Low voltage QRS Possible Inferior infarct , age undetermined Prolonged QT Abnormal ECG No previous ECGs available Confirmed by Mateo Temple ([id number]) on 09/09/2024 8:37:15 PM Referred By: Confirmed By: Mateo Temple
--- NOTE | 2024-09-09 20:38 | Electrocardiogram Report ---
Test Reason : Blood Pressure : */* mmHG Vent. Rate : 64 BPM Atrial Rate : 64 BPM P-R Int : 152 ms QRS Dur : 92 ms QT Int : 458 ms P-R-T Axes : 52 58 65 degrees QTcB Int : 472 ms Normal sinus rhythm Nonspecific T wave abnormality Abnormal ECG When compared with ECG of 06-Sep-2024 11:36, No significant change was found Confirmed by Mateo Temple ([id number]) on 09/09/2024 8:38:17 PM Referred By: REFERRED SELF Confirmed By: Mateo Temple
== END 2024-09-08 14:30 | disposition home or self-care (01) | DRG 605 ==
LOC: ED 16:02 → INTOOBSV 22:51 → SUATTDRO 22:51 → EDINP 22:51 → 2S 09-06 01:25